=== PATIENT | female | born 1940 | race African-American/Black ===

== ENCOUNTER 2018-03-02 07:39 | Emergency (ER) | payer OTHER ==
--- OUTSIDE RECORDS SUMMARY | 2018-03-02 07:41 | XMS REPORT ---
:1940 Author Organization eClinicalWorks Care Team Providers Name Role Phone Bridget Barrera Provider Role Unavailable Allergies, Adverse Reactions, Alerts Substance Reaction Event Type flu vaccine Chest pain Drug Allergy Problems Problem Type Condition Code Onset Dates Condition Status Problem Pain in knee M25.569 Active Problem Murmur R01.1 Active Problem Heart burn R12 Active Problem Hypertension I10 Active Problem Vitamin D deficiency E55.9 Active Problem Hyperlipidemia E78.5 Active Problem Fatigue R53.83 Active Problem Gastro-esophageal reflux K21.9 Active Problem Anemia D64.9 Active Problem Edema R60.9 Active Assessment Encounter for screening mammogram Z12.31 Active for breast cancer Assessment Medicare annual wellness visit, Z00.00 Active initial Assessment Encounter for general adult medical Z00.00 Active examination without abnormal findings Assessment Osteoporosis screening Z13.820 Active Medications Medication Code Code Instructions Start End Status Dosage System Date Date Ferrous [facility] 64398670509 324 (65 Fe) MG Active 1 tablet Sulfate Orally Once a day Spiriva [facility] 49555116571 18 MCG Active 1 capsule HandiHaler Inhalation Once a day Vitamin D3 [facility] 66132533408 1000 UNIT Orally Active 1 tablet Once a day ProAir [facility] 17034931489 108 (90 Base) Active 2 puffs as RespiClick MCG/ACT needed Inhalation every 6 hrs Meclizine HCl ND 56101329419 25 MG Orally tid Active 1 tablet as needed Zestoretic [facility] 75913262817 20-25 MG Orally Active 1 tablet Once a day Results No Known Results Summary Purpose eClinicalWorks Submission
--- OUTSIDE RECORDS SUMMARY | 2018-03-02 07:41 | XMS REPORT ---
:1940 Author Organization eClinicalWorks Care Team Providers Name Role Phone Bridget Barrera Provider Role Unavailable Allergies No Known Allergies Problems Problem Type Condition Code Onset Dates Condition Status Problem Pain in knee M25.569 Active Problem Murmur R01.1 Active Problem Heart burn R12 Active Problem Hypertension I10 Active Problem Vitamin D deficiency E55.9 Active Problem Hyperlipidemia E78.5 Active Problem Fatigue R53.83 Active Problem Gastro-esophageal reflux K21.9 Active Problem Anemia D64.9 Active Problem Edema R60.9 Active Medications No Known Medications Results No Known Results Summary Purpose eClinicalWorks Submission
--- NOTE | 2018-03-02 08:34 | RAD REPORT ---
EXAM DESCRIPTION: CT - Head Brain Wo Cont - 03/02/2018 8:16 am CLINICAL HISTORY: Dizziness COMPARISON: None. TECHNIQUE: Computed axial tomography of the head was obtained. IV contrast was not requested. All CT scans are performed using dose optimization technique as appropriate and may include automated exposure control or mA/KV adjustment according to patient size. FINDINGS: An intracranial bleed is not seen . The ventricles are normal in caliber. No extra-axial fluid collection is noted. Fluid within the sinuses/ mastoids is not seen. IMPRESSION: No acute intracranial abnormality is seen. If patient's symptoms persist MRI of the bra in would be recommended.
[2018-03-02 08:55] LABS: Absolute Lymphocytes (CBC) 1.5 K/uL (0.7-4.9); Absolute Monocytes 0.3 K/uL (0.1-1.3); Absolute Neutrophil 1.8 K/uL (1.8-8.0); Basophils % 0.6 % (0-1.3); Eosinophils % 1.4 % (0-4.4); Hematocrit 37.8 % (36.0-45.0); Lymphocytes % 41.4 % (15.3-44.8); MCH 33.5 pg (27.0-35.0); MCV 97.5 fL (80-100); MPV 9.2 fL (7.6-11.3); Monocytes % 8.3 % (3.3-12.3); Protime INR 1.11; RBC Red Blood Cell Count 3.88 M/uL (3.86-4.86)
--- NOTE | 2018-03-02 09:01 | RAD REPORT ---
EXAM DESCRIPTION: Jason Single View03/02/2018 8:29 am CLINICAL HISTORY: Hypertension COMPARISON: none FINDINGS: The right base is hazy. The remainder of the lungs appear clear. The heart is mildly enlar ged. IMPRESSION: Right base is hazy. PA and lateral chest series is recommended for further evaluation
[2018-03-02 09:15] LABS: ALT/SGPT 19 U/L (12-78); AST/SGOT 13 U/L (15-37); Albumin 3.6 g/dL (3.4-5.0); Alkaline Phosphatase 42 U/L (45-117); BUN Blood Urea Nitrogen 12 mg/dL (7-18); Bicarbonate 31 mmol/L (21-32); Bilirubin Direct 0.1 mg/dL (0-0.2); Bilirubin Total 0.5 mg/dL (0.2-1.0); Glucose Level 112 mg/dL (74-106); Magnesium 2.1 mg/dL (1.8-2.4); NT PRO-BNP 266 pg/mL (<450); Potassium 3.9 mmol/L (3.5-5.1); Protein, Total 7.9 g/dL (6.4-8.2); Sodium Level 142 mmol/L (136-145); Troponin (Emerg Dept Use Only) < 0.02 ng/mL (0.0-0.045)
--- NOTE | 2018-03-02 09:54 | RAD REPORT ---
EXAM DESCRIPTION: Jason Pa And Lat (2 Views)03/02/2018 9:44 am CLINICAL HISTORY: Hypertension/abnormal chest x-ray COMPARISON: 03/02/2018 FINDINGS: The lungs appear clear of acute infiltrate. The heart is borderline enlarged. Aorta is to rtuous/ectatic IMPRESSION: No acute abnormalities displayed
--- NOTE | 2018-03-02 10:00 | ER ---
Nurse's Notes [facility] Name: Minnie Astudillo Age: 78 yrs Sex: Female : 1940 Arrival Date: 03/02/2018 Time: 07:41 Bed 25 Private MD: Meseret Barrera Diagnosis: Essential (primary) hypertension Presentation: 03/02 07:58 Presenting complaint: Patient states: C/O dizziness due to high BP, systolic BP at home ph in 180s, also reports having palpitations when she woke up this morning, states that she did not take her BP medication for 2 days. Transition of care: patient was not received from another setting of care. Onset of symptoms was March 02, 2018. Risk Assessment: Do you want to hurt yourself or someone else? Patient reports no desire to harm self or others. Initial Sepsis Screen: Does the patient meet any 2 criteria? No. Patient's initial sepsis screen is negative. Does the patient have a suspected source of infection? No. Patient's initial sepsis screen is negative. Care prior to arrival: None. 07:58 Method Of Arrival: Ambulatory ph 07:58 Acuity: ROD 3 ph Historical: - Allergies: 08:02 No Known Allergies; ph - Home Meds: 08:02 lisinopril-hydrochlorothiazide 20-25 mg oral tab 1 tab once daily [Active]; ph - PMHx: 08:02 Hypertension; ph - PSHx: 08:02 colon resection; ph - Immunization history:: Adult Immunizations unknown. - Social history:: Smoking status: Patient/guardian denies using tobacco. - Ebola Screening: : No symptoms or risks identified at this time. Screenin:04 Abuse screen: Denies threats or abuse. Denies injuries from another. Nutritional ph screening: No deficits noted. Tuberculosis screening: No symptoms or risk factors identified. Fall Risk None identified. Assessment: 08:04 General: Appears in no apparent distress. comfortable, obese, well groomed, Behavior is ph calm, cooperative, appropriate for age, Denies fever, feeling ill. Pain: Denies pain. Neuro: Level of Consciousness is awake, alert, obeys commands, Oriented to person, place, time, situation. Neuro: Reports dizziness, Denies weakness blurred vision headache. Cardiovascular: Reports lightheadedness, palpitations, Denies chest pain, nausea, shortness of breath, syncope, Capillary refill < 3 seconds in bilateral fingers Patient's skin is warm and dry. Respiratory: Airway is patent Respiratory effort is even, unlabored. Derm: Skin is intact, is healthy with good turgor, Skin is pink, warm \T\ dry. Musculoskeletal: Circulation, motion, and sensation intact. Range of motion: intact in all extremities. 09:15 Reassessment: Patient appears in no apparent distress at this time. Patient and/or ph family updated on plan of care and expected duration. Pain level reassessed. Patient is alert, oriented x 3, equal unlabored respirations, skin warm/dry/pink. Patient denies pain at this time. 10:44 Reassessment: Patient appears in no apparent distress at this time. Patient and/or ph family updated on plan of care and expected duration. Pain level reassessed. Patient is alert, oriented x 3, equal unlabored respirations, skin warm/dry/pink. Pt instructed to take BP medication daily as ordered and to follow up w/ PCP, d/c home w/ SO. Vital Signs: 08:00 BP 189 / 99; Pulse 87; Resp 18; Temp 97.8; Pulse Ox 97% on R/A; Weight 99.79 kg; Height ph 4 ft. 11 in. (149.86 cm); Pain 0/10; 09:22 BP 179 / 79; Pulse 84; Resp 18; Pulse Ox 98% on R/A; ph 10:12 BP 171 / 65; Pulse 51; Resp 16; Pulse Ox 97% on R/A; Pain 0/10; ph 08:00 Body Mass Index 44.43 (99.79 kg, 149.86 cm) ph ED Course: 07:41 Patient arrived in ED. as 07:42 Meseret Barrera is Private Physician. as 07:49 Shemar Emanuel NP is PHCP. pm1 07:49 Brain Curran MD is Attending Physician. pm1 07:57 Merlyn Layne, NERIS is Primary Nurse. ph 08:00 Triage completed. ph 08:03 Arm band placed on Patient placed in an exam room. ph 08:04 Patient has correct armband on for positive identification. Bed in low position. Call light in reach. Side rails up X 1. Pulse ox on. NIBP on. 08:14 CT completed. Patient tolerated procedure well. Patient moved to CT via wheelchair. jg6 Patient moved to radiology. 08:15 CT Head Brain wo Cont In Process Unspecified. EDMS 08:15 EKG done, by agricultural research technologist. reviewed by Shemar Emanuel NP. at1 08:30 XRAY Chest (1 view) In Process Unspecified. EDMS 08:32 X-ray completed. Patient tolerated procedure well. tm4 08:37 Inserted saline lock: 20 gauge in right antecubital area, using aseptic technique. Blood collected. 09:46 Chest Pa And Lat (2 Views) XRAY In Process Unspecified. EDMS 09:59 Meseret Barrera is Referral Physician. pm1 10:12 No provider procedures requiring assistance completed. ph 10:45 IV discontinued, intact, bleeding controlled, No redness/swelling at site. Pressure ph dressing applied. Administered Medications: No medications were administered Outcome: 09:59 Discharge ordered by MD. pm1 10:53 Patient left the ED. aj1 10:53 Discharged to home via wheelchair, with significant other. ph 10:53 Condition: good 10:53 Discharge instructions given to patient, Instructed on discharge instructions, follow up and referral plans. Demonstrated understanding of instructions, follow-up care. Signatures: Dispatcher [employer] EDPR Trinidad Mohr RN RN aj1 Jazmine Moya tm4 Charline Shell Shelby, RN RN ss Gonzales, Amanda, operator engineer EKG Tat1 Merlyn Layne RN RN ph Marinas, Patrick, NP BAGGER AND STOCK HANDLER HELPER pm1 Lucia Lopez jg6
--- NOTE | 2018-03-02 10:00 | EDPHYS ---
Physician Documentation [facility] Name: Minnie Astudillo Age: 78 yrs Sex: Female : 1940 Arrival Date: 03/02/2018 Time: 07:41 Bed 25 Private MD: Meseret Barrera ED Physician Brain Curran HPI: 03/02 09:45 This 78 yrs old Black Female presents to ER via Ambulatory with complaints of High pm1 Blood Pressure. 09:45 The patient has elevated blood pressure and discovered this at home, with a home pm1 device. Onset: The symptoms/episode began/occurred Patient uncertain when her blood pressure started getting higher. She has not checked it in at least two weeks. Patient checked blood pressure yesterday due to dizziness that has been ongoing for two weeks. Had not taken blood pressure medications for the the past 2 days and has a history of missing them on a regular basis. Does not take medications at a scheduled time, just as she remembers them. Associated signs and symptoms: Pertinent negatives: chest pain, headache, nausea, visual changes, vomiting, weakness, shortness of breath. The patient has experienced similar episodes in the past, a few times. The patient has not recently seen a physician, the patient's primary care provider is Dr. Rae Barrera. Historical: - Allergies: 08:02 No Known Allergies; ph - Home Meds: 08:02 lisinopril-hydrochlorothiazide 20-25 mg oral tab 1 tab once daily [Active]; ph - PMHx: 08:02 Hypertension; ph - PSHx: 08:02 colon resection; ph - Immunization history:: Adult Immunizations unknown. - Social history:: Smoking status: Patient/guardian denies using tobacco. - Ebola Screening: : No symptoms or risks identified at this time. ROS: 09:45 Constitutional: Negative for fever, chills, and weight loss, Eyes: Negative for injury, pm1 pain, redness, and discharge, ENT: Negative for injury, pain, and discharge, Neck: Negative for injury, pain, and swelling, Cardiovascular: Negative for chest pain, palpitations, and edema, Respiratory: Negative for shortness of breath, cough, wheezing, and pleuritic chest pain, Abdomen/GI: Negative for abdominal pain, nausea, vomiting, diarrhea, and constipation, Back: Negative for injury and pain, : Negative for injury, bleeding, discharge, and swelling, MS/Extremity: Negative for injury and deformity, Skin: Negative for injury, rash, and discoloration. 09:45 Neuro: Positive for dizziness, Negative for gait disturbance, headache, numbness, tingling, weakness. Exam: 09:45 Constitutional: This is a well developed, well nourished patient who is awake, alert, pm1 and in no acute distress. Head/Face: Normocephalic, atraumatic. Eyes: Pupils equal round and reactive to light, extra-ocular motions intact. Lids and lashes normal. Conjunctiva and sclera are non-icteric and not injected. Cornea within normal limits. Periorbital areas with no swelling, redness, or edema. ENT: Nares patent. No nasal discharge, no septal abnormalities noted. Tympanic membranes are normal and external auditory canals are clear. Oropharynx with no redness, swelling, or masses, exudates, or evidence of obstruction, uvula midline. Mucous membranes moist. Neck: Trachea midline, no thyromegaly or masses palpated, and no cervical lymphadenopathy. Supple, full range of motion without nuchal rigidity, or vertebral point tenderness. No Meningismus. Chest/axilla: Normal chest wall appearance and motion. Nontender with no deformity. No lesions are appreciated. Cardiovascular: Regular rate and rhythm with a normal S1 and S2. No gallops, murmurs, or rubs. No pulse deficits. Respiratory: Lungs have equal breath sounds bilaterally, clear to auscultation and percussion. No rales, rhonchi or wheezes noted. No increased work of breathing, no retractions or nasal flaring. Abdomen/GI: Soft, non-tender, with normal bowel sounds. No distension or tympany. No guarding or rebound. No evidence of tenderness throughout. Back: No spinal tenderness. No costovertebral tenderness. Full range of motion. Skin: Warm, dry with normal turgor. Normal color with no rashes, no lesions, and no evidence of cellulitis. MS/ Extremity: Pulses equal, no cyanosis. Neurovascular intact. Full, normal range of motion. 09:45 Neuro: Orientation: is normal, Mentation: is normal, Cranial nerves: CN II- XII are normal as tested, Cerebellar function: normal finger to nose testing, heel to mendosa testing is normal, Motor: is normal, moves all fours, Sensation: is normal, no obvious gross deficits, Gait: is steady. Vital Signs: 08:00 BP 189 / 99; Pulse 87; Resp 18; Temp 97.8; Pulse Ox 97% on R/A; Weight 99.79 kg; Height ph 4 ft. 11 in. (149.86 cm); Pain 0/10; 09:22 BP 179 / 79; Pulse 84; Resp 18; Pulse Ox 98% on R/A; ph 10:12 BP 171 / 65; Pulse 51; Resp 16; Pulse Ox 97% on R/A; Pain 0/10; ph 08:00 Body Mass Index 44.43 (99.79 kg, 149.86 cm) ph MDM: 07:49 Patient medically screened. pm1 09:47 Data reviewed: vital signs. Data interpreted: Pulse oximetry: on room air is 98 %. pm1 Interpretation: normal. 09:55 Counseling: I had a detailed discussion with the patient and/or guardian regarding: the pm1 historical points, exam findings, and any diagnostic results supporting the discharge/admit diagnosis, lab results, radiology results, the need for outpatient follow up, to return to the emergency department if symptoms worsen or persist or if there are any questions or concerns that arise at home. 03/02 07:57 Order name: Basic Metabolic Panel; Complete Time: 09:23 pm03/02 07:57 Order name: CBC with Diff; Complete Time: 09:09 pm03/02 07:57 Order name: LFT's; Complete Time: 09:23 pm03/02 07:57 Order name: Magnesium; Complete Time: 09: pm03/02 07:57 Order name: NT PRO-BNP; Complete Time: 09:23 pm03/02 07:57 Order name: PT-INR; Complete Time: 09:09 pm03/02 07:57 Order name: Troponin (emerg Dept Use Only); Complete Time: 09: pm03/02 07:57 Order name: XRAY Chest (1 view); Complete Time: 09:09 pm03/02 07:57 Order name: EKG; Complete Time: 07:58 pm03/02 07:57 Order name: Cardiac monitoring; Complete Time: 08:53 pm03/02 07:57 Order name: EKG - Nurse/Tech; Complete Time: 08:07 pm1 03/02 07:57 Order name: IV Saline Lock; Complete Time: 09:25 pm1 03/02 07:57 Order name: CT Head Brain wo Cont; Complete Time: 09:09 pm03/02 09:10 Order name: Chest Pa And Lat (2 Views) XRAY; Complete Time: 09:55 pm1 03/02 07:57 Order name: Labs collected and sent; Complete Time: 09: pm03/02 07:57 Order name: O2 Per Protocol; Complete Time: 08: pm03/02 07:57 Order name: O2 Sat Monitoring; Complete Time: 08: pm1 Administered Medications: No medications were administered Disposition: 12:34 Co-signature as Attending Physician, Brain Curran MD. rn Disposition: 03/02/18 09:59 Discharged to Home. Impression: Essential (primary) hypertension. - Condition is Stable. - Discharge Instructions: Hypertension, How to Take Your Blood Pressure, [id number]-rn-[id number], DASH Eating Plan, Managing Your Hypertension. - Medication Reconciliation Form, Thank You Letter form. - Follow up: Emergency Department; When: As needed; Reason: Worsening of condition. Follow up: Meseret Barrera; When: 2 - 3 days; Reason: Recheck today's complaints, Continuance of care, Re-evaluation by your physician. - Problem is new. - Symptoms have improved. Signatures: Dispatcher [employer] EDTrinidad Betancur RN RN aj1 Brain Curran MD MD rn Hall, Patricia, RN RN ph Marinas, Patrick, CAFETERIA SERVER CAFETERIA SERVER pm1 Corrections: (The following items were deleted from the chart) 10:53 09:59 03/02/2018 09:59 Discharged to Home. Impression: Essential (primary) aj1 hypertension. Condition is Stable. Forms are Medication Reconciliation Form, Thank You Letter, Antibiotic Education, Prescription Opioid Use. Follow up: Emergency Department; When: As needed; Reason: Worsening of condition. Follow up: Meseret Barrera; When: 2 - 3 days; Reason: Recheck today's complaints, Continuance of care, Re-evaluation by your physician. Problem is new. Symptoms have improved. pm1
--- NOTE | 2018-03-02 14:32 | EKG ---
Test Date: 2018-03-02 Test Time: 08:08:23 Arnp: ALEXANDRA MEASUREMENT RESULTS: Intervals: Rate: 75 [place]: 188 QRSD: 72 QT: 406 QTc: 453 [place]: P: 54 [place]: 188 QRS: 32 T: 19 INTERPRETIVE STATEMENTS: Normal sinus rhythm Normal ECG Compared to ECG 10/24/2000 08:08:00 Sinus bradycardia no longer present Electronically Signed On 03-02-18 14:31:18 CDT by Desmond Andrade
== END 2018-03-02 10:53 | disposition home or self-care (01) ==
LOC: ER 07:39
DX: I10 Essential (primary) hypertension (principal)
CPT/HCPCS: 36415; 70450; 71045; 71046; 80048; 80076; 83735; 83880; 84484; 85025; 85610; 93005; 99284

== ENCOUNTER 2020-06-23 13:51 | Inpatient (IN) | payer OTHER ==
--- OUTSIDE RECORDS SUMMARY | 2020-06-23 13:54 | XMS REPORT | Continuity of Care Document ---
:1940 Author Organization [facility] t Address [address] [place] [address] Care Team Providers Name Role Phone Unavailable Unavailable Unavailable Problems This patient has no known problems. Allergies, Adverse Reactions, Alerts Allergy Allergy Status Severity Reaction(s) Onset Inactive Treating Comm ents Source Name Type Date Date Clinician flu Adverse Active Chest pain [facility] Medications Ordered Filled Start Stop Current Ordering Indication Dosage Frequency Signature Comments Components Source Medication Medication Date Date Medication? Clinician (SIG) Name Name Lasautumn Ramosix 2018-06 Yes Meseret [address] [facility]12 [facility] Ferrous Ferrous Yes Meseret [address] [facility] Sulfate Sulfate [facility] Hydrochloro Hydrochloro Yes Meseret [address] [facility] thiazide thiazide [facility] Metoprolol Metoprolol Yes Meseret [address] Succinate Succinate [facility] Procedures This patient has no known procedures. Encounters Start End Encounter Admission Attending Care Care Encounter Source Date/Time Date/Time Type Type Clinicians Facility Department ID 2020-06-09 2020-06-09 Outpatient [facility] [id number] [facility] 2020-06-09 2020-06-09 Outpatient [facility] [id number] [facility] 2019-04-19 2019-04-19 [facility] [id number] [facility] 11:40[facility]00 11:40:00 [facility] 2019-04-17 2019-04-17 [facility] [id number] 11:00[facility] 11:00:00 [facility] 2018-09-04 2018-09-04 [facility] [id number] 11:[facility] 11:00:00 [facility] 2018-03-09 2018-03-09 [facility] [id number] 11:30:00 11:30:00 [facility] 2018-03-06 2018-03-06 [facility] [id number] [address] 13:36:00 13:36:00 [facility] Out[facility] Clin[facility] 2018-02-17 2018-02-17 [facility] [id number] 10:04:00 10:04:00 [facility] Outpat[facility] ent Clinics 2018-01-31 2018-01-31 [facility] [id number] [address] 13:00:00 13:00:00 [facility] Outpati ent Clinics Results This patient has no known results.
--- OUTSIDE RECORDS SUMMARY | 2020-06-23 13:55 | XMS REPORT ---
:1940 Author Organization [facility] Address [address] [place] [address] Care Team Providers Name Role Phone Holly Unavailable [phone] PROBLEMS Type Condition ICD9-CM DRA24-AH Onset Condition SNOMED Code Notes Code Code Dates Status Problem Murmur R01.1 Active 198584694 Problem Fatigue R53.83 Active 92272719 Problem Gastro-esophageal K21.9 Active 721656410 reflux Problem Vitamin D E55.9 Active 00689401 deficiency Problem Hypertension I10 Active 07906183 Problem Hyperlipidemia E78.5 Active 96146912 Problem Dizziness R42 Active 986740119 Problem Anemia D64.9 Active 543817394 Problem RITTER (dyspnea on R06.00 Active 94285172 exertion) Problem Edema R60.9 Active 522163352 Problem Pain in knee M25.569 Active 43303972 Problem Heart burn R12 Active 96813719 Problem Unsteady R26.81 Active 22784311 Problem Vertigo R42 Active 461294211 ALLERGIES Allergen (clinical Drug/Non Drug Allergy Reaction Allergy Type Onse t Date Status drug ingredient) documented on EMR flu vaccine Chest pain Drug Allergy Active ENCOUNTERS from 1940 to 2020-06-09 Encounter Location Date Provider Diagnosis [facility] [address] Jun, 2020 [place] [address] IMMUNIZATIONS No Information SOCIAL HISTORY Tobacco Use: Social History Observation Description Date Details (start date - stop date) Never Smoker Sex Assigned At : Social History Observation Description Sex Assigned At Unknown Alcohol Screen Question Answer Notes Did you have a drink containing alcohol in the past Yes year? Points 1 Interpretation Negative How many drinks did you have on a typical day when 1 or 2 (0 points) you were drinking in the past year? How often did you have a drink containing alcohol in Monthly or less (1 point) the past year? Tobacco Use/Smoking Question Answer Notes Are you a never smoker REASON FOR REFERRAL No Information VITAL SIGNS No information MEDICATIONS Medication SIG (Take, Route, Notes Start Date End Date Status Frequency, Duration) Ferrous Sulfate 324 (65 Fe) 1 tablet Orally Active MG Once a day for 30 day(s) Furosemide 40 MG 1 tablet Orally Jun, A ctive Twice a day for 7 days Hydrochlorothiazide 25 MG 1 tablet in the Active morning Orally Once a day for 30 day(s) Klor-Con M20 20 MEQ 2 tablet with food Jun,Jun , Active Orally Once a day 2020 for 7 days Metoprolol Succinate 50 MG 1 tab Orally bid Active Lasix 40 MG 1 tablet Orally Apr, Not-Ta holly Once a day for 30 days PROCEDURES No Information RESULTS No Results REASON FOR VISIT No Information MEDICAL (GENERAL) HISTORY Type Description Date Medical History Gastro-esophageal reflux Medical History Vitamin D deficiency Medical History Murmur Medical History Edema Medical History Hypertension Medical History Anemia Medical History Fatigue Medical History Hyperlipidemia Medical History Heart burn Medical History Pain in knee Surgical History Cataract-OS 04/2010 Surgical History Cataract- OD 05/2015 Surgical History Colectomy- chemo 2002 Goals Section No Information Health Concerns No Information MEDICAL EQUIPMENT No Information MENTAL STATUS No Information FUNCTIONAL STATUS No Information ASSESSMENTS No Information PLAN OF TREATMENT Medication Medication Name Sig Start Date Stop Date Furosemide 40 MG 1 tablet Orally Twice a day for 7 days Jun, Klor-Con M20 20 MEQ 2 tablet with food Orally Once a day Jun, Jun, for 7 days Insurance Providers Payer Name Payer Payer Insured Patient Coverage Coverage End Address Phone Name Relationship to Start Date Keith e Insured [employer] [phone] Astudillo,Lot self MEDICARE [id number] [place] [phone]
--- OUTSIDE RECORDS SUMMARY | 2020-06-23 13:55 | XMS REPORT ---
:1940 Author Organization [facility] Address [address] [place] [address] Care Team Providers Name Role Phone Holly Unavailable [phone] PROBLEMS Type Condition ICD9-CM [id number] Onset Condition SNOMED Code Notes Code Code Dates Status Problem Murmur R01.1 Active 643119186 Problem Fatigue R53.83 Active 64423352 Problem Gastro-esophageal K21.9 Active 874029551 reflux Problem Vitamin D E55.9 Active 03430611 deficiency Problem Hypertension I10 Active 33061324 Problem Hyperlipidemia E78.5 Active 77773524 Problem Dizziness R42 Active 064304211 Problem Anemia D64.9 Active 671686516 Problem RITTER (dyspnea on R06.00 Active 27892215 exertion) Problem Edema R60.9 Active 854103570 Problem Pain in knee M25.569 Active 74511390 Problem Heart burn R12 Active 63447882 Problem Unsteady R26.81 Active 92115538 Problem Vertigo R42 Active 461636199 ALLERGIES Allergen (clinical Drug/Non Drug Allergy Reaction Allergy Type Onse t Date Status drug ingredient) documented on EMR flu vaccine Chest pain Drug Allergy Active ENCOUNTERS from 1940 to 2020-06-09 Encounter Location Date Provider Diagnosis [facility] [address] Jun, 2020 Meseret Holly Murmur R01.1 ; [facility] [place] [id number] exertion) R06.0 0 ; Unsteady R26.81 and Anemia D64.9 IMMUNIZATIONS No Information SOCIAL HISTORY Tobacco Use: [...] REASON FOR REFERRAL No Information VITAL SIGNS Height 59.5 in Jun, Weight 213.2 lbs Jun, Temperature 97.2 degrees Fahrenheit Jun, BMI 42.34 kg/m2 Jun, Oximetry 92 % Jun, Respiratory Rate 20 /min Jun, Blood pressure systolic 144 mm Hg Jun, Blood pressure diastolic 80 mm Hg Jun, MEDICATIONS Medication SIG (Take, Route, Notes Start [...] for 30 days PROCEDURES No Information RESULTS Component Value Reference Range CBC with Automated Diff Reviewed date:06/09/2020 12:13:42 Interpretation:anemia Performing Lab: White Blood Count 5.0 4.3-10.9 RBC Red Blood Cell Count 3.55 3.86-4.86 Hemoglobin 11.2 12.0-15.0 Hematocrit 33.8 36.0-45.0 MCV 95.2 80-100 MCH 31.6 27.0-35.0 MCHC 33.2 32.0-36.0 Platelets 282 152-406 Red Cell Distribution Width 13.2 12.1-15.2 MPV 9.1 7.6-11.3 Neutrophils % 63.1 41.7-73.7 Lymphocytes % 23.8 15.3-44.8 Monocytes % 11.4 3.3-12.3 Eosinophils % 1.3 0-4.4 Basophils % 0.4 0-1.3 Absolute Neutrophil 3.2 1.8-8.0 Absolute Lymphocytes (CBC) 1.2 0.7-4.9 Absolute Monocytes 0.6 0.1-1.3 Absolute Eosinophils 0.1 0-0.5 Absolute Basophils 0.0 0-0.5 Chest Pa And Lat (2 Views) Reviewed date:06/09/2020 12:11:34 Interpretation: Performing Lab: REASON FOR VISIT Feels unsteady, winded when walking (covid test negative; symptom free) (IN LOBBY) MEDICAL (GENERAL) HISTORY Type Description Date Medical History Gastro-esophageal reflux Medical History Vitamin D deficiency Medical History Murmur Medical History Edema Medical History Hypertension Medical History Anemia Medical History Fatigue Medical History Hyperlipidemia Medical History Heart burn Medical History Pain in knee Surgical History Cataract-OS 04/2010 Surgical History Cataract- OD 05/2015 Surgical History Colectomy- chemo 2001 Goals Section No Information Health Concerns No Information MEDICAL EQUIPMENT No Information MENTAL STATUS No Information FUNCTIONAL STATUS No Information ASSESSMENTS Encounter Date Diagnosis Assessment Notes Treatment Notes Treatm ent Clinical Notes Jun, Murmur (ICD-10 - aware R01.1) Jun, RITTER (dyspnea on will get a chest exertion) (ICD-10 xray - R06.00) Jun, Unsteady (ICD-10 - R26.81) Jun, Anemia (ICD-10 - D64.9) PLAN OF TREATMENT Medication Medication Name Sig Start Date Stop Date Furosemide 40 MG 1 tablet Orally Twice a day for 7 days Jun, Klor-Con M20 20 MEQ 2 tablet with food Orally Once a day Jun, Jun, for 7 days Treatment Notes Assessment Notes Clinical Notes Murmur aware RITTER (dyspnea on exertion) will get a chest xray Treatment Notes Test Name Order Date Comp. Metabolic Panel (14) (CMP) 2020-06-09 Next Appt Details pending tests Reason: Insurance Providers Payer Name Payer Payer Insured Patient Coverage Coverage End Address Phone Name Relationship to Start Date Keith e Insured [employer] [phone] [place] MEDICARE [id number] [place] [address]
[2020-06-23 14:20] LABS: Absolute Lymphocytes (CBC) 1.7 K/uL (0.7-4.9); Basophils % 0.8 % (0-1.3); Hematocrit 36.1 % (36.0-45.0); Lymphocytes % 19.9 % (15.3-44.8); MPV 9.4 fL (7.6-11.3); RBC Red Blood Cell Count 3.81 M/uL (3.86-4.86)
[2020-06-23 14:21] LABS: Protime INR 1.23
[2020-06-23 14:38] LABS: ALT/SGPT 17 U/L (12-78); AST/SGOT 20 U/L (15-37); Albumin 3.4 g/dL (3.4-5.0); Alkaline Phosphatase 47 U/L (45-117); BUN Blood Urea Nitrogen 29 mg/dL (7-18); Bicarbonate 34 mmol/L (21-32); Bilirubin Direct 0.2 mg/dL (0-0.2); Bilirubin Total 0.5 mg/dL (0.2-1.0); Glucose Level 154 mg/dL (74-106); Magnesium 2.4 mg/dL (1.8-2.4); NT PRO-BNP 337 pg/mL (<450); Potassium 3.7 mmol/L (3.5-5.1); Protein, Total 8.6 g/dL (6.4-8.2); Sodium Level 140 mmol/L (136-145); Troponin (Emerg Dept Use Only) < 0.02 ng/mL (0.0-0.045)
[2020-06-23 14:54] LABS: Arterial Blood Carboxyhemoglob 1.5 % (0-1.5); Blood Gas Oxyhemoglobin 91.3 % (94-97); Blood O2 Saturation 93.5 % (92-98.5)
--- NOTE | 2020-06-23 15:07 | RAD REPORT ---
EXAM DESCRIPTION: Jason Single View06/23/2020 2:51 pm CLINICAL HISTORY: Shortness of breath COMPARISON: June 09 FINDINGS: Opacification of the right hemithorax. Trachea is shifted to the left. Left lung appears clear of acute infiltrate. Heart is mildly enlarged IMPRESSION: Opacification of the right hemithorax probably due to a large pleural effusion
[2020-06-23] MEDS ORDERED: CEFTRIAXONE/SWI 1gm 1 GM/10 ML SYR ONE (15:15)
[2020-06-23 15:34] LABS: SARS-COV-2 RT PCR NEGATIVE (NEGATIVE)
--- NOTE | 2020-06-23 15:45 | RAD REPORT ---
EXAM DESCRIPTION: CT - Chest For Pe Angio - 06/23/2020 3:31 pm CLINICAL HISTORY: Cough/shortness of breath COMPARISON: None. TECHNIQUE: Dynamically enhanced axial 3 mm thick images of the chest were obtained during administra tion of <100> mL Isovue 370 IV contrast. Coronal and oblique reconstruction images were generated and reviewed. Exam utilizes a protocol for optimal evaluation of pulmonary arterial tree. Maximum intensity projections 3D imaging was utilized All CT scans are performed using dose optimization technique as appropriate and may include automated exposure control or mA/KV adjustment according to patient size. FINDINGS: A pulmonary embolus is not seen. A thoracic aortic aneurysm is not noted. Opacification of the right hemithorax secondary to a very large pleural effusion. Passive right atele ctasis is present. Small left pleural effusion with left lower lobe atelectasis. Small amount ascites upper abdomen IMPRESSION: Negative for a pulmonary embolism. Large right pleural effusion
--- NOTE | 2020-06-23 16:03 | P.HP ---
Certification for Inpatient Patient admitted to: Inpatient With expected LOS: >2 Midnights Practitioner: I am a practitioner with admitting privileges, knowledge of patient current condition, hospital course, and medical plan of care. Services: Services provided to patient in accordance with Admission requirements found in Title 42 Section 412.3 of the Code of Federal Regulations Patient History Date of Service: 06/23/20 Reason for admission: Shortness of breath History of Present Illness: 80-year-old woman with a history of hypertension was brought to the emergency department by EMS because of respiratory distress. Patient received a dose of IV Ativan on the way to the emergency department. She was stuporous during my assessment patient could not provide any history. CT chest done in the emergency department demonstrated large pleural effusion completely filling the right hemithorax. Arterial blood gas shows hypoxemia and some CO2 retention. Patient started on BiPAP therapy for acute respiratory failure. She has no leukocytosis, afebrile and does not meet criteria for sepsis. Patient admitted for further management. - Past Medical/Surgical History -: Hypertension - Social History Alcohol use: No Place of Residence: Home Review of Systems is unable to be obtained (Due to altered mental status.) Physical Examination - Physical Exam General: Moderate distress, Other (Somnolent) HEENT: PERRLA, Other (BiPAP applied.), Sclerae nonicteric Neck: Supple, JVD distended Respiratory: Diminished (Markedly diminished on the right), Other (No rhonchi) Cardiovascular: Regular rate/rhythm, Edema (2+ bilateral lower extremity edema.) Gastrointestinal: Normal bowel sounds, Soft and benign, No tenderness Musculoskeletal: No erythema Integumentary: No rashes, No erythema Neurological: Other (Somnolent. She moves all extremities spontaneously.) - Studies Laboratory Data (last 24 hrs) 06/23/20 14:00: PT 14.4 H, INR 1.23 06/23/20 14:00: WBC 8.7, Hgb 11.8 L, Hct 36.1, Plt Count 329 06/23/20 14:00: Sodium 140, Potassium 3.7, BUN 29 H, Creatinine 0.99, Glucose 154 H, Magnesium 2.4, Total Bilirubin 0.5, AST 20, ALT 17, Alkaline Phosphatase 47 Assessment and Plan - Problems (Diagnosis) (1) Acute respiratory failure with hypoxia and hypercapnia Current Visit: Yes Status: Acute (2) Pleural effusion, right Current Visit: Yes Status: Acute (3) Hypertension Current Visit: Yes Status: Acute (4) Congestive heart failure Current Visit: Yes Status: Acute - Plan Admit to the ICU. Patient with respiratory failure secondary to large pleural effusion. Start IV Lasix Scheduled bronchodilators. Patient will need thoracentesis. Repeat imaging after thoracentesis to exclude lung mass/pneumonia. Empiric IV Levaquin. Consult to pulmonary. Consult general surgery Consult to cardiology. Obtain echocardiogram. - Advance Directives Does patient have a Living Will: No Does patient have a Durable POA for Healthcare: No
--- NOTE | 2020-06-23 16:27 | EDPHYS ---
Physician Documentation [facility] Name: Minnie Astudillo Age: 80 yrs Sex: Female : 1940 Arrival Date: 06/23/2020 Time: 13:55 Bed 4 Private MD: ED Physician Facundo Aguilar HPI: 06/23 14:03 This 80 yrs old Black Female presents to ER via Unassigned with complaints of Shortness erich Of Breath. 14:03 The patient has shortness of breath at rest, with light activity. Onset: The erich symptoms/episode began/occurred just prior to arrival, this morning. Duration: The symptoms are continuous, and are steadily getting worse. The patient's shortness of breath is aggravated by light activity, supine position, talking, walking. Associated signs and symptoms: Pertinent positives: non-productive cough. Severity of symptoms: At their worst the symptoms were mild moderate in the emergency department the symptoms are unchanged. The patient has experienced similar episodes in the past, multiple times. Historical: - Allergies: 13:55 No Known Allergies; aa5 - Home Meds: 13:55 potassium chloride 20 mEq Oral TbER once daily [Active]; furosemide 40 mg Oral tab 2 aa5 times per day [Active]; ferrous sulfate 325 mg (65 mg iron) oral tab twice a day [Active]; metoprolol tartrate 50 mg oral tab 2 times per day [Active]; - PMHx: 13:55 Hypertension; CHF; aa5 - PSHx: 13:55 colon resection; aa5 - Immunization history:: Adult Immunizations unknown. - Family history:: not pertinent. - Social history:: Smoking status: unknown. ROS: 14:04 Constitutional: Negative for fever, chills, and weight loss, Eyes: Negative for injury, erich pain, redness, and discharge, ENT: Negative for injury, pain, and discharge, Neck: Negative for injury, pain, and swelling, Cardiovascular: Negative for chest pain, palpitations, and edema, Abdomen/GI: Negative for abdominal pain, nausea, vomiting, diarrhea, and constipation, Back: Negative for injury and pain, : Negative for injury, bleeding, discharge, and swelling, MS/Extremity: Negative for injury and deformity, Skin: Negative for injury, rash, and discoloration, Neuro: Negative for headache, weakness, numbness, tingling, and seizure, Psych: Negative for depression, anxiety, suicide ideation, homicidal ideation, and hallucinations, Allergy/Immunology: Negative for hives, rash, and allergies, Endocrine: Negative for neck swelling, polydipsia, polyuria, polyphagia, and marked weight changes. 14:04 Respiratory: Positive for cough, orthopnea, shortness of breath, at rest. wheezing, expiratory. Exam: 14:04 Constitutional: This is a well developed, well nourished patient who is awake, alert, erich and in no acute distress. Head/Face: Normocephalic, atraumatic. Eyes: Pupils equal round and reactive to light, extra-ocular motions intact. Lids and lashes normal. Conjunctiva and sclera are non-icteric and not injected. Cornea within normal limits. Periorbital areas with no swelling, redness, or edema. ENT: Nares patent. No nasal discharge, no septal abnormalities noted. Tympanic membranes are normal and external auditory canals are clear. Oropharynx with no redness, swelling, or masses, exudates, or evidence of obstruction, uvula midline. Mucous membranes moist. Neck: Trachea midline, no thyromegaly or masses palpated, and no cervical lymphadenopathy. Supple, full range of motion without nuchal rigidity, or vertebral point tenderness. No Meningismus. Chest/axilla: Normal chest wall appearance and motion. Nontender with no deformity. No lesions are appreciated. Cardiovascular: Regular rate and rhythm with a normal S1 and S2. No gallops, murmurs, or rubs. Normal PMI, no JVD. No pulse deficits. Abdomen/GI: Soft, non-tender, with normal bowel sounds. No distension or tympany. No guarding or rebound. No evidence of tenderness throughout. Back: No spinal tenderness. No costovertebral tenderness. Full range of motion. Female : Normal external genitalia. MS/ Extremity: Pulses equal, no cyanosis. Neurovascular intact. Full, normal range of motion. Neuro: Awake and alert, GCS 15, oriented to person, place, time, and situation. Cranial nerves II-XII grossly intact. Motor strength 5/5 in all extremities. Sensory grossly intact. Cerebellar exam normal. Normal gait. Psych: Awake, alert, with orientation to person, place and time. Behavior, mood, and affect are within normal limits. 14:04 Respiratory: moderate respiratory distress is noted, Respirations: labored breathing, that is mild, that is moderate, Breath sounds: bronchial sounds, decreased breath sounds, rhonchi, wheezing: expiratory Respiratory rate: 28 14:22 ECG was reviewed by the Attending Physician. [facility] Vital Signs: 13:55 BP 159 / 93; Pulse 115; Resp 28 S; Temp 98.8(O); Pulse Ox 100% on Non-rebreather mask; aa5 14:00 BP 130 / 82; Pulse 114; Resp 30 A; Pulse Ox 100% on BiPAP; aa5 14:45 BP 121 / 75; Pulse 106; Resp 26 A; Temp 99.3(C); Pulse Ox 95% on BiPAP; aa5 15:00 BP 109 / 59; Pulse 102; Resp 28; Pulse Ox 98% on BiPAP; aa5 16:00 BP 113 / 64; Pulse 98; Resp 32; Temp 98.6(C); Pulse Ox 100% on BiPAP; aa5 17:00 BP 93 / 58; Pulse 90; Resp 28; Temp 98.4(C); Pulse Ox 100% on BiPAP; aa5 17:10 BP 93 / 59; Pulse 88; Resp 26 A; Temp 98.3(C); Pulse Ox 100% on BiPAP; aa5 17:30 BP 89 / 55; Pulse 87; Resp 24 A; Pulse Ox 100% on BiPAP; aa5 17:45 BP 125 / 83; Pulse 81; Resp 24 A; Pulse Ox 100% on BiPAP; aa5 18:05 BP 119 / 59; Pulse 82; Resp 22 A; Temp 98.3(C); Pulse Ox 100% on BiPAP; aa5 17:00 MD notified of decreased BP aa5 MDM: 14:06 Differential diagnosis: Anemia asthma. Antibiotic administration: Not indicated. The [facility] patient's Wells Deep Vein Thrombosis Score was calculated as follows: Heart Rate >100 BPM (1.5 Pts) Imm/Surg in last 4 wks (1.5 Pts) Total Score: 3-6 Pts - Mod Risk. The patient's pulmonary embolism risk score was calculated as follows: the patients heart rate is greater than 100 beats per minute (1.5 Pts) patient has experienced immobilization or surgery in the last four weeks (1.5 Pts) Total Score: 3-6 points. This patient was found to be at moderate risk for a pulmonary embolism by using the Well's assessment criteria. Immunization status: Pneumococcal vaccine: Influenza vaccine: Data reviewed: vital signs, nurses notes, lab test result(s), EKG, radiologic studies, CT scan, plain films. Data interpreted: pricing strategist: rate is 114 beats/min, rhythm is regular. Test interpretation: by ED physician or midlevel provider: ECG, plain radiologic studies. Counseling: I had a detailed discussion with the patient and/or guardian regarding: the historical points, exam findings, and any diagnostic results supporting the discharge/admit diagnosis, the presence of at least one elevated blood pressure reading (>120/80) during this emergency department visit, lab results, radiology results, the need for further work-up and treatment in the hospital. 14:23 Patient medically screened. [facility] 16:26 Physician consultation: Bill Olivas. Physician consultation: Cezar Beltran MD and [facility] will see patient in inpatient room, wants dr torres consulted. 16:31 Physician consultation: Brandon Torres MD and will see patient in ED, dr torres in route [facility] now. immediately. 06/23 14:01 Order name: Basic Metabolic Panel [facility] 06/23 14:01 Order name: CBC with Diff [facility] 06/23 14:01 Order name: LFT's [facility] 06/23 14:01 Order name: Magnesium [facility] 06/23 14:01 Order name: NT PRO-BNP [facility] 06/23 14:01 Order name: PT-INR [facility] 06/23 14:01 Order name: Troponin (emerg Dept Use Only) [facility] 06/23 14:01 Order name: Blood Culture Adult (2) [facility] 06/23 14:01 Order name: Lactate; Complete Time: 14:55 [facility] 06/23 14:01 Order name: Urine Culture [facility] 06/23 14:02 Order name: Basic Metabolic Panel; Complete Time: 14:55 ED[facility] 06/23 14:02 Order name: CBC with Automated Diff; Complete Time: 14:55 [facility] 06/23 14:01 Order name: XRAY Chest (1 view); Complete Time: 15:27 [facility] 06/23 14:01 Order name: BIPAP [facility] 06/23 14:02 Order name: Liver (Hepatic) Function; Complete Time: 14:55 [facility] 06/23 14:02 Order name: Magnesium; Complete Time: 14:55 [facility] 06/23 14:02 Order name: NT PRO-BNP; Complete Time: 14:55 [facility] 06/23 14:02 Order name: Protime (+INR); Complete Time: 14:55 [facility] 06/23 14:02 Order name: Troponin (Emerg Dept Use Only); Complete Time: 14:55 [facility] 06/23 14:03 Order name: ABG; Complete Time: 15:27 [facility] 06/23 14:59 Order name: Urine Dipstick--Ancillary (enter results) 06/23 15:03 Order name: CT Chest For PE Angio; Complete Time: 15:54 [facility] 06/23 15:09 Order name: Glucose, Ancillary Testing; Complete Time: 15:27 [facility] 06/23 15:34 Order name: COVID-19/FLU A+B; Complete Time: 15:54 [facility] 06/23 16:53 Order name: CXR XRAY 06/23 18:28 Order name: Lactate Sepsis 2 HR Follow-up [facility] 06/23 14:01 Order name: EKG; Complete Time: 14:03 [facility] 06/23 14:01 Order name: Cardiac monitoring; Complete Time: 14:27 [facility] 06/23 14:01 Order name: EKG - Nurse/Tech; Complete Time: 14:28 [facility] 06/23 14:01 Order name: IV Saline Lock; Complete Time: 14:28 [facility] 06/23 14:01 Order name: Labs collected and sent; Complete Time: 14:28 [facility] 06/23 14:01 Order name: O2 Per Protocol; Complete Time: 14:28 [facility] 06/23 14:01 Order name: O2 Sat Monitoring; Complete Time: 14:28 [facility] 06/23 14:01 Order name: Faria; Complete Time: 14:28 [facility] 06/23 14:01 Order name: Urine Dipstick-Ancillary (obtain specimen); Complete Time: 14:27 [facility] EC:22 Rate is 114 beats/min. Rhythm is regular. QRS [place] is Normal. AR interval is normal. [facility] QRS interval is normal. QT interval is normal. No Q waves. T waves are Normal. No ST changes noted. Clinical impression: NSR w/ Non-specific ST/T Changes and Sinus tachycardia. Interpreted by me. Reviewed by me. Administered Medications: 14:45 Drug: Rocephin 1 grams Route: IV; Rate: per protocol; Site: left antecubital; aa5 15:00 Follow up: IV Status: Completed infusion aa5 17:00 Drug: Zosyn 3.375 grams Route: IVPB; Infused Over: 60 mins; Site: right forearm; aa5 18:00 Follow up: Response: No adverse reaction; IV Status: Completed infusion aa5 17:10 Drug: NS 0.9% 500 ml Route: IV; Rate: bolus; Site: left forearm; aa5 18:00 Follow up: IV Status: Completed infusion; IV Intake: 500ml aa5 Point of Care Testing: Blood Glucose: 14:29 Blood Glucose: 127 mg/dL; aa5 Ranges: Critical Glucose Levels:Adult <50 mg/dl or >400 mg/dl <40 mg/dl or >180 mg/dl Disposition: 06/23/20 16:26 Hospitalization ordered by Bill Olivas for Inpatient Admission. Preliminary diagnosis are Dyspnea, Pleural effusion in other conditions classified elsewhere - large right pleural effusion, Unspecified combined systolic (congestive) and diastolic (congestive) heart failure, Obesity, unspecified, Respiratory failure, unspecified with hypercapnia, Respiratory failure, unspecified with hypoxia. - Bed requested for Intensive Care Unit. - Status is Inpatient Admission. iw - Condition is Fair. - Problem is new. - Symptoms have improved. Signatures: Dispatcher [employer] EDAL Natividad Caruso Corey, MD MD cha Williams, Irene, RN Lizeth Sweeney RN RN aa5 Todd Quintanilla, RIG BUILDER HELPER-C RIG BUILDER HELPER-Cla1 Corrections: (The following items were deleted from the chart) 14:45 14:03 CORONAVIRUS+MR.LAB.BRZ ordered. EDAL EDMS 14:46 14:03 Influenza Screen (A \T\ B)+BA.LAB.BRZ ordered. EDAL EDMS 17:18 16:26 Hospitalization Ordered by Bill Olivas for Inpatient Admission. Preliminary bd diagnosis is Dyspnea; Pleural effusion in other conditions classified elsewhere - large right pleural effusion; Unspecified combined systolic (congestive) and diastolic (congestive) heart failure; Obesity, unspecified; Respiratory failure, unspecified with hypercapnia; Respiratory failure, unspecified with hypoxia. Bed requested for Intensive Care Unit. Status is Inpatient Admission. Condition is Fair. Problem is new. Symptoms have improved. erich 18:28 17:18 06/23/2020 16:26 Hospitalization Ordered by Bill Olivas for Inpatient iw Admission. Preliminary diagnosis is Dyspnea; Pleural effusion in other conditions classified elsewhere - large right pleural effusion; Unspecified combined systolic (congestive) and diastolic (congestive) heart failure; Obesity, unspecified; Respiratory failure, unspecified with hypercapnia; Respiratory failure, unspecified with hypoxia. Bed requested for Intensive Care Unit. Status is Inpatient Admission. Condition is Fair. Problem is new. Symptoms have improved. bd
--- NOTE | 2020-06-23 16:27 | ER ---
Nurse's Notes [facility] Name: Minnie Astudillo Age: 80 yrs Sex: Female : 1940 Arrival Date: 06/23/2020 Time: 13:55 Bed 4 Private MD: Diagnosis: Dyspnea;Pleural effusion in other conditions classified elsewhere-large right pleural effusion;Unspecified combined systolic (congestive) and diastolic (congestive) heart failure;Obesity, unspecified;Respiratory failure, unspecified with hypercapnia;Respiratory failure, unspecified with hypoxia Presentation: 06/23 13:55 Chief complaint: Chief complaint: Chief complaint: EMS states: Sudden onset of dyspnea aa5 at Dr. Andrade's office (wink cutter operator), initial BP was 180/120, RR40, initial O2 sat was 70% RA and increased to 98% upon O2 administration via non-rebreather. EMS reports pt was given Ativan 2mg IVP and Bi-PAP was attempted but pt did not tolerate Bi-PAP. EMS also reports administering Lasix 80mg IVP and Nitro paste. 18G to L AC by EMS. Nitro paste removed upon arrival to ER. 13:55 Coronavirus screen: cough unrelated to allergies, shortness of breath, Client presents aa5 with at least one sign or symptom that may indicate coronavirus-19. Standard/surgical mask placed on the client. Provider contacted for isolation considerations. Ebola Screen: Patient negative for fever greater than or equal to 101.5 degrees Fahrenheit, and additional compatible Ebola Virus Disease symptoms. Initial Sepsis Screen: Does the patient meet any 2 criteria? RR > 20 per min. HR > 90 bpm. Yes Does the patient have a suspected source of infection? Yes: Productive cough/pneumonia. Risk Assessment: Do you want to hurt yourself or someone else? Patient reports no desire to harm self or others. Onset of symptoms was June 23, 2020. 13:55 Acuity: ROD 1 aa5 13:55 [facility] Historical: - Allergies: 13:55 No Known Allergies; aa5 - Home Meds: 13:55 potassium chloride 20 mEq Oral TbER once daily [Active]; furosemide 40 mg Oral tab 2 aa5 times per day [Active]; ferrous sulfate 325 mg (65 mg iron) oral tab twice a day [Active]; metoprolol tartrate 50 mg oral tab 2 times per day [Active]; - PMHx: 13:55 Hypertension; CHF; aa5 - PSHx: 13:55 colon resection; aa5 - Immunization history:: Adult Immunizations unknown. - Family history:: not pertinent. - Social history:: Smoking status: unknown. Screenin:00 Abuse screen: Denies threats or abuse. Denies injuries from another. Nutritional bp screening: No deficits noted. Tuberculosis screening: No symptoms or risk factors identified. Fall Risk None identified. Assessment: 13:55 General: Appears uncomfortable, Behavior is cooperative. Pain: Denies pain. Neuro: aa5 Level of Consciousness is alert, obeys commands, Drowsy . Oriented to person, place, time, situation. Cardiovascular: Heart tones S1 S2 present Edema 2+ pitting edema noted to sd lower legs Rhythm is regular. Respiratory: Reports shortness of breath cough that is productive, Pt unable to speak in complete sentences at this time due to SOB. Airway is patent Respiratory effort is labored, shallow, Respiratory pattern is symmetrical, tachypnea Breath sounds are diminished bilaterally. the patient has severe shortness of breath. GI: Abdomen is round obese. : No signs and/or symptoms were reported regarding the genitourinary system. EENT: No signs and/or symptoms were reported regarding the EENT system. Derm: Skin is dry, Skin is normal, Skin temperature is warm. Musculoskeletal: Range of motion: intact in all extremities. 14:00 Reassessment: RT at bedside to place on BiPAP and obtain ABG. iw 14:20 Reassessment: Pt tolerating Bi-PAP well, tachypnea noted, SOB noted. . aa5 14:45 Reassessment: Tolerating Bi-PAP well, tachypnea noted, pt reports SOB has improved. Pt aa5 remains drowsy but A\T\O x 4, pt remains unable to speak in full sentences at this time. Will continue to monitor. . 15:20 Reassessment: Pt with eyes closed, tolerating Bi-PAP well, pt remains drowsy, awakens aa5 to verbal and tactile stimuli, pt reports SOB has improved. Pt able to follow commands, pt is A\T\O x person/place/time. . 16:20 Reassessment: No changes from previously documented assessment. aa5 16:30 Reassessment: Dr. Nur (surgeon) speaking to pt's daughter over the phone about need aa5 for chest tube insertion. . 17:03 Reassessment: x-ray at bedside post chest tube insertion, pt tolerated procedure well. .aa5 18:00 Reassessment: Pt remains drowsy, pt awakens to verbal and tactile stimuli, pt able to aa5 follow commands, and is A\T\O x person/place/time. Tolerating Bi-PAP well, SOB has improved. Skin is normal/warm/dry. . Vital Signs: 13:55 BP 159 / 93; Pulse 115; Resp 28 S; Temp 98.8(O); Pulse Ox 100% on Non-rebreather mask; aa5 14:00 BP 130 / 82; Pulse 114; Resp 30 A; Pulse Ox 100% on BiPAP; aa5 14:45 BP 121 / 75; Pulse 106; Resp 26 A; Temp 99.3(C); Pulse Ox 95% on BiPAP; aa5 15:00 BP 109 / 59; Pulse 102; Resp 28; Pulse Ox 98% on BiPAP; aa5 16:00 BP 113 / 64; Pulse 98; Resp 32; Temp 98.6(C); Pulse Ox 100% on BiPAP; aa5 17:00 BP 93 / 58; Pulse 90; Resp 28; Temp 98.4(C); Pulse Ox 100% on BiPAP; aa5 17:10 BP 93 / 59; Pulse 88; Resp 26 A; Temp 98.3(C); Pulse Ox 100% on BiPAP; aa5 17:30 BP 89 / 55; Pulse 87; Resp 24 A; Pulse Ox 100% on BiPAP; aa5 17:45 BP 125 / 83; Pulse 81; Resp 24 A; Pulse Ox 100% on BiPAP; aa5 18:05 BP 119 / 59; Pulse 82; Resp 22 A; Temp 98.3(C); Pulse Ox 100% on BiPAP; aa5 17:00 MD notified of decreased BP aa5 ED Course: 13:55 Patient arrived in ED. aa5 13:55 Arm band placed on Patient placed in an exam room, on a stretcher. aa5 13:55 Patient has correct armband on for positive identification. Placed in gown. Bed in low aa5 position. Call light in reach. Side rails up X2. groundwater monitoring technician on. Pulse ox on. NIBP on. 13:56 Lizeth Pedro, NERIS is Primary Nurse. aa5 13:58 Facundo Aguilar MD is Attending Physician. [facility] 14:00 Inserted saline lock: 20 gauge in right forearm, using aseptic technique. Blood aa5 collected. 14:00 Initial lab(s) drawn, by sd, sent to lab. First set of blood cultures drawn by me. aa5 14:02 Maintain EMS IV. Dressing intact. Good blood return noted. Site clean \T\ dry. Gauge \T\ iw site: 18 LAC. 14:13 Second set of blood cultures drawn by me. aa5 14:30 COVID swab sent to lab. Flu and/or RSV swab sent to lab. aa5 14:30 Faria cath inserted, using sterile technique, 18 Fr., by sd, balloon inflated, to aa5 gravity drainage. 14:48 Triage completed. aa5 14:51 XRAY Chest (1 view) In Process Unspecified. EDMS 15:31 CT Chest For PE Angio In Process Unspecified. EDMS 16:24 Bill Olivas is Hospitalizing Provider. [facility] 16:58 Assist provider with chest tube insertion with 16 Fr. in right lateral chest wall. Tray bp was set up. Attached to pleur-e-vac. Chest tube inserted by Brandon Nur MD Placement verified by fluctuation of fluid, return of blood, Dressed with foam tape, Patient tolerated well. 18:20 Patient admitted, IV remains in place. aa5 Administered Medications: 14:45 Drug: Rocephin 1 grams Route: IV; Rate: per protocol; Site: left antecubital; aa5 15:00 Follow up: IV Status: Completed infusion aa5 17:00 Drug: Zosyn 3.375 grams Route: IVPB; Infused Over: 60 mins; Site: right forearm; aa5 18:00 Follow up: Response: No adverse reaction; IV Status: Completed infusion aa5 17:10 Drug: NS 0.9% 500 ml Route: IV; Rate: bolus; Site: left forearm; aa5 18:00 Follow up: IV Status: Completed infusion; IV Intake: 500ml aa5 Point of Care Testing: Blood Glucose: 14:29 Blood Glucose: 127 mg/dL; aa5 Ranges: Intake: 18:00 IV: 500ml; Total: 500ml. aa5 17:00 chest tube aa5 Output: 17:00 Drainage: 1500ml; Total: 1500ml. aa5 17:00 chest tube aa5 Outcome: 16:26 Decision to Hospitalize by Provider. erich 18:20 Patient left the ED. aa5 18:20 Admitted to ICU accompanied by nurse, via stretcher, with oxygen, on monitor, with aa5 chart. 18:20 Condition: stable Signatures: Dispatcher [employer] EDPA Facundo Aguilar MD MD cha Williams, Irene, RN RN Lizeth Pedro RN RN aa Dario Mcgill RN RN bp Corrections: (The following items were deleted from the chart) 14:48 13:55 Chief complaint: Chief complaint: aa5 aa5 15:03 13:55 Chief complaint: EMS states: Sudden onset of dyspnea at Dr. Andrade's office aa5 (wink cutter operator), initial BP was 180/120, RR40, initial O2 sat was 70% RA and increased to 98% upon O2 administration via non-rebreather. EMS reports pt was given Ativan 2mg IVP and Bi-PAP was attempted but pt did not tolerate Bi-PAP. EMS also reports administering Lasix 80mg IVP and Nitro paste. 18G to L AC by EMS. Chief complaint: EMS states: Sudden onset of dyspnea at Dr. Andrade's office (wink cutter operator), initial BP was 180/120, RR40, initial O2 sat was 70% RA and increased to 98% upon O2 administration via non-rebreather. EMS reports pt was given Ativan 2mg IVP and Bi-PAP was attempted but pt did not tolerate Bi-PAP. EMS also reports administering Lasix 80mg IVP and Nitro paste. 18G to L AC by EMS. Chief complaint: EMS states: Sudden onset of dyspnea at Dr. Andrade's office (wink cutter operator), initial BP was 180/120, RR40, initial O2 sat was 70% RA and increased to 98% upon O2 administration via non-rebreather. EMS reports pt was given Ativan 2mg IVP and Bi-PAP was attempted but pt did not tolerate Bi-PAP. EMS also reports administering Lasix 80mg IVP and Nitro paste. 18G to L AC by EMS. aa5 15:04 14:00 BP 159 / 93; Pulse 115bpm; Resp 28bpm; Spontaneous; Pulse Ox 100% Non-rebreather aa5 mask; iw 15:06 14:00 BP 159 / 93; Pulse 115bpm; Resp 28bpm; Spontaneous; Pulse Ox 100% Non-rebreather aa5 mask; Temp 98.8F Oral; aa5 17: 15:00 BP 109 / 59; Pulse 102bpm; Resp 28bpm; Pulse Ox 98%; bp aa5 17: 16:00 BP 113 / 64; Pulse 98bpm; Resp 32bpm; Pulse Ox 100%; bp aa5 17: 17:00 Pulse 90bpm; Resp 28bpm; Pulse Ox 100%; bp aa5 17:28 17:00 Pulse 90bpm; Resp 28bpm; Pulse Ox 100% BiPAP; Temp 98.4F Catheter; aa5 aa5 18:46 17:00 BP 93 / 58; Pulse 90bpm; Resp 28bpm; Pulse Ox 100% BiPAP; Temp 98.4F Catheter; aa5aa5 18:47 18:28 Patient left the ED. iw aa5 18:51 17:03 Reassessment: x-ray at bedside post chest tube insertion. aa5 aa5
[2020-06-23] MEDS ORDERED: PIPER/TAZO/NS 3.375gm 3.375 GM/100 ML BAG ONE (16:51)
--- NOTE | 2020-06-23 17:03 | P.OP ---
Preoperative diagnosis: Opacification of RIGHT Hemithorax - Effusion Postoperative diagnosis: Opacification of RIGHT Hemithorax - Effusion Primary procedure: Placement of RIGHT thoracostomy tube Anesthesia: Local 1% lidocaine Estimated blood loss: <2cc Specimen: pleural fluid sent Findings: straw- reddish pleural fluid sent Complications: None Drain(s): Other (THAL chest tube) Transferred to: Recovery Room Condition: Good
[2020-06-23 17:19] LABS: Urine Blood TRACE (NEG); Urine Glucose NEGATIVE (NEG); Urine Protein NEGATIVE (NEG)
--- NOTE | 2020-06-23 17:34 | OP ---
Date of Procedure: 06/23/2020 Surgeon: Brandon Nur MD, Preoperative Diagnosis: Complete opacification of right hemithorax due to pleural effusion. Postoperative Diagnosis: Complete opacification of right hemithorax due to pleural effusion. Procedure Performed: Placement of right thoracostomy chest tube. Anesthesia: Local 1% lidocaine used. Estimated Blood Loss: Less than 2 mL. Specimen: Pleural fluid sent for analysis. Finding: Straw reddish colored pleural fluid sent. Complications: None. Drains: Thal right thoracostomy small bore chest tube approximately 0.5 cm in size. Disposition: The patient remained in the ER recovery area in stable condition. Procedure In Detail: After informed consent was obtained from the patient's family and the patient, I anesthetized the area of the right midaxillary line down through the subcutaneous tissues with 1% l idocaine. I then made a small maxi incision in the skin overlying the chest wall with a scalpel 11 b lade. Then using a finer needle, I went over the rib and into the pleural space to withdraw straw-co lored reddish fluid. This was expressed easily. I then advanced the wire into the chest cavity at t his point and removed the needle, and the wire remained in place. Sequential dilatation was then per formed. Then, I placed the Thal chest tube into the thoracic cavity over the wire using Seldinger te chnique, aiming posterior cranially. Straw-colored fluid was emanating from this approximately 1500 cc came out of Pneumovax system immediately. The chest tube was then secured to the skin with a 2-0 nylon suture and a sterile dressing placed over top. The patient tolerated the procedure well withou t evidence of complication, remained in the ER in stable condition. All counts were correct at the e nd of the case. TK/MODL Voice ID: [id number] Report ID: [id number]
--- NOTE | 2020-06-23 17:43 | CON ---
Date of Consultation: 06/23/2020 Brief History Of Present Illness: The patient is an 80-year-old female with history of hypertension, brought in by EMS for respiratory distress. She received a dose of IV Ativan in the emergency depar tment and was stuporous at the time of the examination. She was speaking, but incoherently during my examination. Therefore, I spoke to the patient's family who agreed to consent for placement of a ri ght thoracostomy tube. After a large right pleural effusion with complete opacification, the hemotho rax was appreciated on both the chest x-ray as well as chest CT. The patient remained hypoxic with C O2 retention prior to the procedure and was started on BiPAP. After informed consent was obtained, salbador bishop proceeded with the procedure. See my operative note for details regarding this. Past medical hist ory and information are obtained from the chart predominantly and from the patient's family. Past Medical History: Significant for hypertension. Past Surgical History: Unable to obtain. Review of Systems: Unable to obtain. Social History: Unable to obtain. Physical Examination: General: The patient was in moderate respiratory distress during my examination on BiPAP, confused o therwise. HEENT: Normocephalic. Sclerae anicteric. Mucous membranes are moist. Oropharynx clear. Neck: Supple. No JVD. Chest: Normal expansion and excursion. Cardiovascular: Regular rate and rhythm. Pulmonary: Absent breath sounds on the right. Laboratory Data: Her pH was 7.4, pCO2 of 54, pO2 of 74, bicarb is 32, base excess 7.5, SpO2 was 93% on 40% O2. Her white blood cell count is 8.7, hemoglobin 10.8, hematocrit 36.1, platelet count 329, neutrophils are normal at 63%. Her PT 14.4, INR 1.23. Sodium 140, potassium 3.7, chloride 102, carb on dioxide 34, BUN 29, creatinine 0.9, glucose is 154. Lactic acid is currently pending. Calcium 9. 8, magnesium 2.4, total bilirubin 0.5, direct bilirubin 0.2, AST 20, ALT 17, alkaline phosphatase is 47. ProBNP 337. She had imaging performed, which included a chest x-ray, read officially by Dr. Eduard galeano as opacification of the right hemothorax probably due to a large pleural effusion. The patient additionally had a CTA of chest and thoracic, which officially read as pulmonary embolus has not seen and thoracic aortic aneurysm has not noted. Opacification of right hemothorax secondary to a very l arge full effusion, passive right atelectasis present, small left pleural effusion with left lower lo be atelectasis, small amount of ascites in the upper abdomen. Assessment And Plan: This is an 80-year-old female, who comes in with opacification of right hemotho rax. 1.Medical management. 2.Oxygen therapy and respiratory recovery. 3.I explained the risks, benefits, and alternatives of placement of right thoracostomy tube includin g, but not limited to bleeding, infection, damage to surrounding tissues, injury of the great vessels and lung, and need for further operation and procedure. The patient agrees to proceed as indicated. Thank you for this interesting consult. ROSA/REGGIE Voice ID: [id number] Report ID: [id number]
--- NOTE | 2020-06-23 18:53 | RAD REPORT ---
EXAM DESCRIPTION: Jason Single View06/23/2020 5:09 pm CLINICAL HISTORY: Device placement right chest tube placement IMPRESSION: A right chest tube has been placed. The tip lies within the upper right hemithorax. A pneumothorax is not seen. There has been significant evacuation of the pleural fluid
[2020-06-23] MEDS ORDERED: ONDANSETRON 4 MG/2 ML VIAL IV PRN (19:26)
[2020-06-23] MEDS: FUROSEMIDE 40 MG/4 ML VIAL IV SCH (19:26)
[2020-06-23] MEDS: HEPARIN 5000 UNIT/ML 1 ML VIAL SQ SCH (20:12)
[2020-06-23] MEDS ORDERED: HEPARIN 5000 UNIT/ML 1 ML VIAL ONE (20:15)
[2020-06-23] MEDS ORDERED: FUROSEMIDE 40 MG/4 ML VIAL ONE (20:15)
[2020-06-23] MEDS ORDERED: Levofloxacin 750mg IV 750 MG/150 ML BAG IV ONE (20:16)
[2020-06-23] MEDS: ALBUTEROL 2.5 MG/3 ML NEB SOL NEB SCH (20:50)
[2020-06-23] MEDS: IPRATROPIUM BROM 0.5MG/2.5ML NEB SCH (20:50)
[2020-06-23 20:59] LABS: Appearance TURBID (CLEAR); Body Fluid Source PLEURAL; Color of fluid Red (COLORLESS)
[2020-06-23 21:00] LABS: Body Fluid WBC 2141 /mm^3
[2020-06-23] MEDS ORDERED: Levofloxacin 750mg IV 750 MG/150 ML BAG IV SCH (21:00)
[2020-06-23] MEDS ORDERED: ALBUTEROL 2.5 MG/3 ML NEB SOL ONE (21:05)
[2020-06-23] MEDS ORDERED: IPRATROPIUM BROM 0.5MG/2.5ML ONE (21:06)
[2020-06-23] MEDS ORDERED: FENTANYL CITR 100 MCG/2 ML IV PRN (21:36)
[2020-06-23] MEDS ORDERED: FENTANYL CITR 100 MCG/2 ML ONE (22:43)
[2020-06-24] MEDS: FUROSEMIDE 40 MG/4 ML VIAL IV SCH ×3 (01:00→19:30)
[2020-06-24] MEDS: ALBUTEROL 2.5 MG/3 ML NEB SOL NEB SCH ×2 (01:15→06:20)
[2020-06-24] MEDS: IPRATROPIUM BROM 0.5MG/2.5ML NEB SCH ×2 (01:15→06:20)
[2020-06-24] MEDS ORDERED: ALBUTEROL 2.5 MG/3 ML NEB SOL ONE ×2 (01:25→06:28)
[2020-06-24] MEDS ORDERED: IPRATROPIUM BROM 0.5MG/2.5ML ONE ×2 (01:25→06:28)
[2020-06-24] MEDS: HEPARIN 5000 UNIT/ML 1 ML VIAL SQ SCH ×3 (01:29→17:08)
[2020-06-24] MEDS ORDERED: HEPARIN 5000 UNIT/ML 1 ML VIAL ONE ×3 (01:42→17:22)
[2020-06-24] MEDS ORDERED: FUROSEMIDE 40 MG/4 ML VIAL ONE ×3 (01:42→19:44)
[2020-06-24 05:28] LABS: Absolute Lymphocytes (CBC) 1.5 K/uL (0.7-4.9); Basophils % 0.7 % (0-1.3); Hematocrit 33.8 % (36.0-45.0); Lymphocytes % 19.7 % (15.3-44.8); MPV 9.1 fL (7.6-11.3); RBC Red Blood Cell Count 3.54 M/uL (3.86-4.86)
[2020-06-24 05:52] LABS: Albumin 2.7 g/dL (3.4-5.0); Bilirubin Total 0.5 mg/dL (0.2-1.0); Phosphorus 4.5 mg/dL (2.5-4.9); Potassium 4.1 mmol/L (3.5-5.1); Protein, Total 7.4 g/dL (6.4-8.2); Thyroid Stimulating Hormone 2.16 uIU/mL (0.360-3.740)
--- NOTE | 2020-06-24 08:01 | RAD REPORT ---
EXAM DESCRIPTION: Jason Single View06/24/2020 5:04 am CLINICAL HISTORY: right pleural effusion COMPARISON: June 23 FINDINGS: Right chest tube remains in place without visualization of a pneumothorax. Small pleural effusions Opacity overlying the mid and lower right lung may represent atelectasis, infiltrate or pulmonary dennis ma. Mild left lung opacities The heart remains enlarged
--- NOTE | 2020-06-24 08:34 | P.CNS ---
Date of Consult: 06/24/20 Reason for Consult: Pleural effusion Chief Complaint: Shortness of breath History of Present Illness: Patient is 80 years of age admitted with worsening dyspnea over the past couple of weeks and was found to have a significant right-sided pleural effusion status post chest tube insertion he has been feeling a little better prior history of colon cancer was treated years ago no prior history of any other malignancy in a denies any fever chills or chest pain feeling better there has been no air leak a moderate right-sided pleural effusion was also noticed on June 09 Allergies No Known Allergies Allergy (Verified 06/23/20 19:05) Home Medications: Ferrous Sulfate [Feosol] 325 mg PO BID 06/23/20 Furosemide [Lasix] 40 mg PO BIDL 06/23/20 Metoprolol Tartrate [Lopressor*] 1 tab PO BID 06/23/20 Potassium Chloride 20 meq PO DAILY 06/23/20 - Past Medical/Surgical History Diabetic: No -: Hypertension -: CHF -: colon resection - Family History Mother Medical History: Hypertension - Social History Smoking Status: Unknown if ever smoked Alcohol use: No CD- Drugs: No Place of Residence: Home Review of Systems 10-point ROS is otherwise unremarkable Physical Examination Temp Pulse Resp BP Pulse Ox 96.3 F L 74 22 H 102/61 100 06/24/20 08:00 06/24/20 08:00 06/24/20 08:00 06/24/20 08:00 06/24/20 08:00 General: Alert, Oriented x3 Neck: Supple Respiratory: Clear to auscultation bilaterally, Friction rub Cardiovascular: Regular rate/rhythm Gastrointestinal: Normal bowel sounds, Soft and benign Musculoskeletal: No clubbing Integumentary: No rashes, No breakdown Laboratory Data (last 24 hrs) 06/23/20 14:00: PT 14.4 H, INR 1.23 06/23/20 14:00: WBC 8.7, Hgb 11.8 L, Hct 36.1, Plt Count 329 06/23/20 14:00: Sodium 140, Potassium 3.7, BUN 29 H, Creatinine 0.99, Glucose 154 H, Magnesium 2.4, Total Bilirubin 0.5, AST 20, ALT 17, Alkaline Phosphatase 47 - Problems (1) Pleural effusion, right Current Visit: Yes Status: Acute Plan: Patient is 80 years of age admitted with acute dyspnea significant right-sided pleural effusion status post chest tube insertion pleural effusion was also noticed in Jun/there is no evidence of underlying sepsis as no air leak either will plan to Dc the BiPAP Dc Faria catheter was send the pleural fluid off for LDH glucose Gram stain pending CT angiogram did not show any evidence of pulmonary embolism remote history of colon cancer and was resected chemistries cytology ordered on the pleural fluid patient has a history of CHF
[2020-06-24] MEDS ORDERED: ALBUTEROL 2.5 MG/3 ML NEB SOL NEB PRN (08:35)
[2020-06-24] MEDS ORDERED: IPRATROPIUM BROM 0.5MG/2.5ML NEB PRN (08:38)
--- NOTE | 2020-06-24 13:14 | P.PN ---
Subjective Date of Service: 06/24/20 Chief Complaint: Shortness of breath Subjective: Improving (breathing more comfortably this morning, on BIPAP, s/p thoracentesis yesterday) Review of Systems 10-point ROS is otherwise unremarkable Physical Examination - Vital Signs Temperature: 98.2 F Blood Pressure: 97/56 Pulse: 83 Respirations: 13 Pulse Ox (%): 94 - Studies Laboratory Data (last 24 hrs) 06/23/20 14:00: PT 14.4 H, INR 1.23 06/23/20 14:00: WBC 8.7, Hgb 11.8 L, Hct 36.1, Plt Count 329 06/23/20 14:00: Sodium 140, Potassium 3.7, BUN 29 H, Creatinine 0.99, Glucose 154 H, Magnesium 2.4, Total Bilirubin 0.5, AST 20, ALT 17, Alkaline Phosphatase 47 Microbiology Data (last 24 hrs): 06/23/20 14:13 Blood - Blood Anaerobic Blood Culture - Final Assessment & Plan Physician Review Additional Text: Physical Exam: Gen: NAD, alert HEENT: sclera anicteric, normal conjuctiva CV: RRR, 2+ lower extremity edema bilaterally Pulm: dimisihed at R base, chest tube in place Abd: soft, NTND Ext: no rash Problem List Acute hypoxemic respiratory failure due to large R pleural effusion, with hy percapnia HTN CHF, unknown type -s/p thoracentesis of R pleural effusion on 06/23 by general surgery - labs sent -breathing more comfortably -COVID negative -pulm consulted, dc'd antibiotics, fluid does not appear infectious -echo pending, cardiology consulted given h/o CHF -continue Lasix IV 40mg BID, pt with hypotension, will monitor closely -reports remote h/o colon cancer s/p surgery now, no other malignancy Dispo: anticipate dc home in 24-48hrs . Time Spent Managing Pts Care (In Minutes): 35
[2020-06-24 16:30] VITALS: BMI 39.6
--- NOTE | 2020-06-24 17:16 | EKG ---
Test Date: 2020-06-23 Test Time: 14:02:23 Insurance Verification Clerk: NADIR MEASUREMENT RESULTS: Intervals: Rate: 114 OH: 152 QRSD: 78 QT: 342 QTc: 471 [place]: P: 54 OH: 152 QRS: 49 T: 7 INTERPRETIVE STATEMENTS: Sinus tachycardia with premature atrial complexes Otherwise normal ECG Compared to ECG 03/02/2018 08:08:23 Atrial premature complex(es) now present Sinus rhythm no longer present Electronically Signed On 06-24-20 17:13:07 CERTIFIED SURGICAL TECHNOLOGIST by Desmond Andrade
--- NOTE | 2020-06-24 20:15 | P.PN ---
Subjective Date of Service: 06/24/20 Chief Complaint: Shortness of breath Subjective: Improving (Patient has no shortness of breath or other complaints.) Physical Examination - Vital Signs Temperature: 98.4 F Blood Pressure: 111/64 Pulse: 92 Respirations: 29 Pulse Ox (%): 99 - Physical Exam General: Alert, In no apparent distress, Cooperative HEENT: Mucous membr. moist/pink Respiratory: Clear to auscultation bilaterally, Normal air movement, Other (RIGHT chest tube in place on water seal functioning well) - Studies Microbiology Data (last 24 hrs): 06/23/20 14:13 Blood - Blood Anaerobic Blood Culture - Final Assessment And Plan - Current Problems (Diagnosis) (1) Pleural effusion, right Current Visit: Yes Status: Acute Plan: - Water seal for chest tube - daily chest x rays - serial exams - continue medical management Physician Review Additional Text: Physical Exam: Gen: NAD, alert HEENT: sclera anicteric, normal conjuctiva CV: RRR, 2+ lower extremity edema bilaterally Pulm: dimisihed at R base, chest tube in place Abd: soft, NTND Ext: no rash Problem List Acute hypoxemic respiratory failure due to large R pleural effusion, with hypercapnia HTN CHF, unknown type -s/p thoracentesis of R pleural effusion on 06/23 by general surgery - labs sent -breathing more comfortably -COVID negative -pulm consulted, dc'd antibiotics, fluid does not appear infectious -echo pending, cardiology consulted given h/o CHF -continue Lasix IV 40mg BID, pt with hypotension, will monitor closely -reports remote h/o colon cancer s/p surgery now, no other malignancy Dispo: anticipate dc home in 24-48hrs .
[2020-06-24] MEDS: GLUCERNA SHAKE 237 ML CAN PO SCH (21:13)
[2020-06-25] MEDS: HEPARIN 5000 UNIT/ML 1 ML VIAL SQ SCH ×3 (00:49→15:54)
[2020-06-25 06:36] LABS: Absolute Lymphocytes (CBC) 1.5 K/uL (0.7-4.9); Basophils % 0.2 % (0-1.3); Hematocrit 32.4 % (36.0-45.0); Lymphocytes % 23.9 % (15.3-44.8); MPV 9.1 fL (7.6-11.3); RBC Red Blood Cell Count 3.41 M/uL (3.86-4.86)
[2020-06-25 06:54] LABS: Magnesium 2.2 mg/dL (1.8-2.4); Potassium 3.7 mmol/L (3.5-5.1)
--- NOTE | 2020-06-25 08:25 | ECHO ---
HEIGHT: 4 ft 11 in WEIGHT: 196 lb 0 oz DATE OF STUDY: 06/24/[address]: Cezar Beltran MD 2-DIMENSIONAL: YES M.MODE: YES DOPPLER: YES COLOR FLOW: YES TDS: PORTABLE: DEFINITY: BUBBLE STUDY: DIAGNOSIS: PLEURAL EFFUSION CARDIAC HISTORY: CATHERIZATION: SURGERY: PROSTHETIC VALVE: PACEMAKER: MEASUREMENTS (cm) DIASTOLIC (NORMALS) SYSTOLIC (NORMALS) IVSd 1.0 (0.6-1.2) LA Diam (1.9-4.0) LVEF 75% LVIDd 3.7 (3.5-5.7) LVIDs 2.1 (2.0-3.5) %FS 43% LVPWd 1.0 (0.6-1.2) Ao Diam 2.4 (2.0-3.7) 2 DIMENSIONAL ASSESSMENT: RIGHT ATRIUM: NORMAL LEFT ATRIUM: NORMAL RIGHT VENTRICLE: NORMAL LEFT VENTRICLE: NORMAL TRICUSPID VALVE: NORMAL MITRAL VALVE: MITRAL ANNULAR CALCIFICATION PULMONIC VALVE: NORMAL AORTIC VALVE: SCLEROSIS PERICARDIAL EFFUSION: NONE AORTIC ROOT: NORMAL LEFT VENTRICULAR WALL MOTION: NORMAL DOPPLER/COLOR FLOW: NORMAL COMMENTS: NORMAL LEFT VENTRICULAR SIZE AND FUNCTION. MITRAL ANNULAR CALCIFICATION. AORTIC SCLEROSIS. NO EFFUSION. TECHNOLOGIST: BRANDY FLOR
[2020-06-25] MEDS ORDERED: POTASSIUM CL SA 10 MEQ TAB PO ONE (09:00)
[2020-06-25] MEDS: FUROSEMIDE 40 MG/4 ML VIAL IV SCH ×2 (09:01→21:26)
[2020-06-25] MEDS: GLUCERNA SHAKE 237 ML CAN PO SCH ×2 (09:04→21:27)
--- NOTE | 2020-06-25 09:17 | P.PN ---
Subjective Date of Service: 06/25/20 Chief Complaint: Shortness of breath Subjective: Improving (Patient feels well, no shortness of breath.) Physical Examination - Vital Signs Temperature: 98.4 F Blood Pressure: 117/55 Pulse: 92 Respirations: 18 Pulse Ox (%): 94 - Physical Exam General: Alert, In no apparent distress, Cooperative Respiratory: Clear to auscultation bilaterally, Other (Chest tube in place, draining serous fluid. no air leak on water seal) - Studies Microbiology Data (last 24 hrs): 06/23/20 14:55 Clean Catch Urine [place] Count - Final No growth. 06/23/20 14:55 Clean Catch Urine - Final No growth. 06/23/20 14:13 Blood - Blood Anaerobic Blood Culture - Final Assessment And Plan - Current Problems (Diagnosis) (1) Pleural effusion, right Current Visit: Yes Status: Acute Plan: - Water seal for chest tube, will review need for pleurodesis with Dr. Reed, and keep chest tube for now - daily chest x rays - serial exams - continue medical management - await analysis of pleural fluid Physician Review Additional Text: Physical Exam: Gen: NAD, alert HEENT: sclera anicteric, normal conjuctiva CV: RRR, 2+ lower extremity edema bilaterally Pulm: dimisihed at R base, chest tube in place Abd: soft, NTND Ext: no rash Problem List Acute hypoxemic respiratory failure due to large R pleural effusion, with hypercapnia HTN CHF, unknown type -s/p thoracentesis of R pleural effusion on 06/23 by general surgery - labs sent -breathing more comfortably -COVID negative -pulm consulted, dc'd antibiotics, fluid does not appear infectious -echo pending, cardiology consulted given h/o CHF -continue Lasix IV 40mg BID, pt with hypotension, will monitor closely -reports remote h/o colon cancer s/p surgery now, no other malignancy Dispo: anticipate dc home in 24-48hrs .
--- NOTE | 2020-06-25 10:46 | RAD REPORT ---
EXAM DESCRIPTION: Jason Single View06/25/2020 4:42 am CLINICAL HISTORY: Chest pain COMPARISON: June 24, 2020 FINDINGS: Worsening in the bilateral pulmonary opacities right greater than left. The heart is norm al size. A left chest tube in place without visualization of a pneumothorax IMPRESSION: Worsening in the bilateral pulmonary opacities may represent pulmonary edema or pneumoni a. Small left pleural effusion The prominent opacification the right hemithorax may represent a combination of pleural effusion, ate lectasis and/or pulmonary edema/pneumonia
--- NOTE | 2020-06-25 11:55 | RAD REPORT ---
EXAM DESCRIPTION: Jason Single View06/25/2020 11:16 am CLINICAL HISTORY: Shortness of breath COMPARISON: June FINDINGS: No significant change in the opacification of the right hemithorax probably a combination of pleural effusion, atelectasis and pneumonia/pulmonary edema Right chest tube in place without visualization of a pneumothorax. Small to moderate left pleural effusion is suspected with basilar atelectasis. Heart remains enlarged
--- NOTE | 2020-06-25 13:39 | CON ---
Date of Consultation: 06/24/2020 Reason For Consultation: Pleural effusion and history of congestive heart failure. History Of Present Illness: Ms. Astudillo is an 80-year-old black woman with history of hypertension, chronic diastolic congestive heart failure, colon cancer status post colon resection, came into the e mergency room with chest discomfort and shortness of breath, was found to have a large pleural effusi on on the right side. She is now status post chest tube placement by Dr. Nur and is feeling bett er. Denied chest pain, nausea, vomiting, diaphoresis. Had PND, orthopnea. No pedal edema. No palp itations or syncope. Denied any fever or chills. Past Medical History: As stated above. Allergies: NONE. Review of Systems: Negative. Social History: Negative. Family History: Negative. Medications: Include Lasix, metoprolol, . Physical Examination: General: She was pleasant, normal sinus rhythm, afebrile. No acute distress. Chest tube in place, still draining. HEENT: Negative. Neck: Supple. No bruit. Chest: Revealed clear left lung. In the right lung with chest tube in place. Cardiac: Revealed a regular rhythm and rate with S4, gallops. Abdomen: Benign. Extremities: Revealed no clubbing, cyanosis, or edema. Diagnostic Data: Fairly unremarkable except for the chest x-ray showing the pleural effusion. Impression And Plan: Pleural effusion status post chest tube, pathology pending show. Sh e has hypertension that is well controlled. She has chronic diastolic congestive heart failure that is controlled on metoprolol and Lasix. I will continue to follow her. No need for any cardiac estephania p at this point. NB/MODL Voice ID: [id number] Report ID: [id number]
[2020-06-25] MEDS ORDERED: METOPROLOL TAR 25 MG TAB PO ONE (15:00)
[2020-06-25 15:29] LABS: Blood Gas Oxyhemoglobin 95.1 % (94-97)
--- NOTE | 2020-06-25 20:37 | P.PN ---
Subjective Date of Service: 06/25/20 Chief Complaint: Shortness of breath Subjective: Other (feeling ok this morning, denied SOB, on 2L NC) Review of Systems 10-point ROS is otherwise unremarkable Physical Examination - Vital Signs Temperature: 97.9 F Blood Pressure: 128/77 Pulse: 119 Respirations: 18 Pulse Ox (%): 97 - Studies Microbiology Data (last 24 hrs): 06/23/20 14:55 Clean Catch Urine [place] Count - Final No growth. 06/23/20 14:55 Clean Catch Urine - Final No growth. Assessment & Plan Physician Review Additional Text: Physical Exam: Gen: NAD, alert HEENT: sclera anicteric, normal conjuctiva CV: RRR, 2+ lower extremity edema bilaterally Pulm: dimisihed at R base, chest tube in place, ~100cc output Abd: soft, NTND Ext: no rash Problem List Acute hypoxemic respiratory failure due to large R pleural effusion, with hypercapnia HTN CHF, unknown type sinus tachycardia -s/p thoracentesis of R pleural effusion on 06/23 by general surgery - labs sent -breathing more comfortably this morning -COVID negative -pulm consulted, dc'd antibiotics, fluid does not appear infectious -echo with normal EF, cardiology consulted given ?h/o CHF -continue Lasix IV 40mg BID, monitor closey -reports remote h/o colon cancer s/p surgery now, no other malignancy -sinus tachycardia on telemetry, will restart home metoprolol, monitor BP closely Dispo: anticipate dc home in 24-48hrs . Time Spent Managing Pts Care (In Minutes): 35
[2020-06-26] MEDS: HEPARIN 5000 UNIT/ML 1 ML VIAL SQ SCH ×2 (00:51→10:00)
[2020-06-26] MEDS: METOPROLOL TAR 50 MG TAB PO SCH ×3 (05:21→20:31)
[2020-06-26] MEDS ORDERED: METOPROLOL TAR 25 MG TAB PO SCH (06:00)
[2020-06-26 06:14] LABS: Absolute Lymphocytes (CBC) 1.5 K/uL (0.7-4.9); Basophils % 0.4 % (0-1.3); Hematocrit 31.9 % (36.0-45.0); Lymphocytes % 24.7 % (15.3-44.8); MPV 8.7 fL (7.6-11.3); RBC Red Blood Cell Count 3.35 M/uL (3.86-4.86)
[2020-06-26 06:31] LABS: Magnesium 2.3 mg/dL (1.8-2.4); Potassium 3.7 mmol/L (3.5-5.1)
--- NOTE | 2020-06-26 07:10 | RAD REPORT ---
EXAM DESCRIPTION: RAD - Chest Single View - 06/26/2020 4:44 am CLINICAL HISTORY: Patient has a chest tube, pleural effusion, shortness of breath COMPARISON: Portable June 25 TECHNIQUE: AP portable chest image was obtained 06/26/2020 4:44 am . FINDINGS: No change in positioning of the chest tube. There is no right-sided pneumothorax identifia ble. No new lung parenchymal process seen. Lower lung field atelectasis is present with bilateral pleural effusions. No substantial change in pleural fluid identified. Large cardiac silhouette remains. Vascular engorgement is still present. IMPRESSION: Stable chest from June 25
[2020-06-26] MEDS: FUROSEMIDE 40 MG/4 ML VIAL IV SCH (09:00)
[2020-06-26] MEDS ORDERED: POTASSIUM CL SA 10 MEQ TAB PO ONE ×2 (09:00→10:00)
[2020-06-26] MEDS ORDERED: ENOXAPARIN 40 MG/0.4 ML SQ SCH (09:00)
--- NOTE | 2020-06-26 09:56 | RAD REPORT ---
EXAM DESCRIPTION: CT - Thorax Wo Con - 06/26/2020 9:19 am CLINICAL HISTORY: hypoxia, effusion, eval for any mass/pneumonia COMPARISON: Chest For Pe Angio dated 06/23/2020 TECHNIQUE: Axial 5 mm thick images of the chest were obtained without IV contrast. All CT scans are performed using dose optimization technique as appropriate and may include automated exposure control or mA/KV adjustment according to patient size. FINDINGS: Chest tube is in place entering the fifth intercostal space directed anteriorly. Did not c hest tube is in the anterior right apex. There is a trace 1% pneumothorax medial right apex. Right lo wer lobe atelectasis present. There is partial atelectasis of the right middle lobe and minimal atele ctasis in the right upper lobe. No right-sided mass or infiltrate identified. Moderate fluid remains in the posterior aspect of the chest. Contour of the pleural fluid suggest loculation. Small loculate d pockets of fluid are present in the posterior right apex. A small to moderate left-sided pleural ef fusion is present showing the crescent-shaped generally associated with free pleural fluid. Partial a telectasis of the left lower lobe present. No underlying infiltrate or mass identified on the left. N o left-sided pneumothorax. No abnormal mediastinal or hilar masses or lymphadenopathy seen. No gross aortic or pulmonary artery finding suspected. Assessment is limited in the absence of IV contrast. No cardiomegaly or pericardi al effusion. No chest wall mass or abnormal axillary lymphadenopathy. Limited upper abdomen imaging shows nodular contour to the liver. Trace amount of ascites adjacent to the liver capsule. IMPRESSION: Moderate volume of pleural fluid on the right along the posterior aspect of the chest. C ontour the fluid suggests loculation. Right-sided chest tube enters the sixth intercostal space and extends superiorly in the anterior ches t. Tip is in the anterior apex of the right hemithorax where there is a trace 1% pneumothorax. Small to moderate left pleural effusion without evidence for loculation. Bilateral atelectasis changes are present as detailed. Underlying mass or infiltrate not seen.
[2020-06-26] MEDS: GLUCERNA SHAKE 237 ML CAN PO SCH ×2 (10:01→20:32)
--- NOTE | 2020-06-26 14:11 | P.PN ---
Subjective Date of Service: 06/26/20 Chief Complaint: Respiratory failure Patient is still complaining of shortness of breath no change since chest tube she does have a loculated effusions worse on the right side with an minimal apical pneumothorax otherwise she feels fine been feeling short of breath for the past couple of weeks denies any fever or chills Review of Systems General: Weakness Respiratory: Shortness of Breath Physical Examination - Vital Signs Temperature: 98.3 F Blood Pressure: 111/80 Pulse: 90 Respirations: 19 Pulse Ox (%): 95 - Physical Exam General: Alert, Oriented x3, Moderate distress Respiratory: Clear to auscultation bilaterally, Diminished (Diminished on the right side) Cardiovascular: No edema, Regular rate/rhythm, Normal S1 S2 Assessment & Plan - Problems (Diagnosis) (1) Pleural effusion, right Current Visit: Yes Status: Acute Plan: Patient is status post right-sided chest tube as he has significant loculations worse on the right side may be causing her hypoxemia due to trapped lung patient is hypoxic hypercapnic no evidence of sepsis recommend transfer to CT surgery for decortication pleural fluid no evidence of sepsis pleural fluid was negative for sepsis cytology in the pleural fluid is pending no prior history of mal ignancy patient has normal left ventricular function reduce dose of Lasix stable for transfer
--- NOTE | 2020-06-26 15:40 | P.PN ---
Subjective Date of Service: 06/26/20 Chief Complaint: Respiratory failure Subjective: Other (Dyspnea on exertion yesterday, slightly improved today, however still persists. Patient without any new complaints today. on 4L NC) Review of Systems 10-point ROS is otherwise unremarkable Physical Examination - Vital Signs Temperature: 98.3 F Blood Pressure: 111/80 Pulse: 90 Respirations: 19 Pulse Ox (%): 95 Assessment & Plan Physician Review Additional Text: Physical Exam: Gen: NAD, alert HEENT: sclera anicteric, normal conjuctiva CV: RRR, 1-2+ lower extremity edema bilaterally Pulm: dimisihed at R base, chest tube in place, ~100cc output Abd: soft, NTND Ext: no rash Problem List Acute hypoxemic respiratory failure due to large R pleural effusion, with hypercapnia HTN CHF, unknown type sinus tachycardia -s/p thoracentesis of R pleural effusion on 06/23 by general surgery - labs sent -pending cytology -continues with some dyspnea -COVID negative -pulm consulted, dc'd antibiotics, fluid does not appear infectious -echo with normal EF, cardiology consulted given questionable h/o CHF -continue Lasix IV 40mg BID, monitor closely -reports remote h/o colon cancer s/p surgery now, no other malignancy -sinus tachycardia improvement with re-initiation of home metoprolol -CT chest obtained today to further evaluate the is continued opacities and dyspnea on exertion. - consistent with multiple loculated effusions -discuss with pulmonology, patient requires transfer to tertiary care center where CT surgery can perform VATS procedure / decortication -family updated Dispo: initiated transfer process to tertiary care center - awaiting call backs . Time Spent Managing Pts Care (In Minutes): 45
--- NOTE | 2020-06-26 18:43 | P.DS ---
Admission Date: 06/23/20 Discharge Date: 06/26/20 Disposition: TRANSFER TO [facility] Discharge Condition: FAIR Reason for Admission: Respiratory failure, R pleural effusion Consultations: Pulmonology - Dr. Cezar Beltran General Surgery - Dr. Brandon Nur Procedures: CXR (06/23): Opacification of the right hemithorax probably due to a large pleural effusion CTA Chest (06/23): Negative for a pulmonary embolism. Opacification of the right hemithorax secondary to a very large pleural effusion. Passive right atelectasis is present. Small left pleural effusion with left lower lobe atelectasis. Small amount ascites upper abdomen CXR (06/24): Right chest tube remains in place without visualization of a pneumothorax. Small pleural effusions. Opacity overlying the mid and lower right lung may represent atelectasis, infiltrate or pulmonary edema. Mild left lung opacities CXR( 06/25): No significant change in the opacification of the right hemithorax probably a combination of pleural effusion, atelectasis and pneumonia/pulmonary edema. Right chest tube in place without visualization of a pneumothorax. Small to moderate left pleural effusion is suspected with basilar atelectasis. Heart remains enlarged CT Chest (06/26): Moderate fluid remains in the posterior aspect of the chest. Contour of the pleural fluid suggest loculation. Small loculated pockets of fluid are present in the posterior right apex. A small to moderate left-sided pleural effusion is present showing the crescent-shaped generally associated with free pleural fluid. Right-sided chest tube enters the sixth intercostal space and extends superiorly in the anterior chest. Tip is in the anterior apex of the right hemithorax where there is a trace 1% pneumothorax. Small to moderate left pleural effusion without evidence for loculation. Bilateral atelectasis changes are present as detailed. Underlying mass or infiltrate not seen. TTE (06/24): normal LV size and function (EF: 75%), mitral annular calcification. aortic sclerosis. no effusion. Pleural fluid analysis Color: Red, Appearance: Turbid. Supernatant color: xanthochromic. WBC: 2141, RBC: 82306, Neutrophils: 43, Lymphocytes: 43, Eosinophils: 0, Monocytes: 14 Problem List Acute hypoxemic respiratory failure secondary to large right pleural effusion Hypertension Diastolic CHF sinus tachycardia h/o colon cancer s/p resection Brief History of Present Illness: 80yo F, PMH: HTN, presented to ED via EMS due to respiratory distress. Patient received IV Ativan on way to ED and was stuporous during assessment and could not provide much history. CXR and CTA chest demonstrated large pleural effusion completely filling the right hemothorax. ABG consistent with hypoxemia and CO2 retention. Patient was placed on BiPAP. Labwork is negative for leukocytosis, patient was afebrile. Hospital Course: Patient underwent right side thoracentesis by general surgery on 06/23. Cytology that was sent out and still pending at time of transfer. She was diuresed with 40mg IV Lasix BID. (increased from 40mg BID PO at home). Initially patient had improvement was tolerating 2 L nasal cannula. Chest tube with only 100-110 cc/day output. On 06/25 patient is noted become dyspneic on exertion after working with physical therapy. Repeat CT chest revealed loculated right- sided effusions. She was transferred to [facility] where CT surgery will evaluate patient for possible VATS / decortication. Patient has remained afebrile, no leukocytosis. Vital Signs/Physical Exam: Temp Pulse Resp BP Pulse Ox 98.0 F 75 18 112/57 L 98 06/26/20 16:00 06/26/20 16:00 06/26/20 16:00 06/26/20 16:00 06/26/20 16:00 General: Alert, In no apparent distress, Oriented x3 HEENT: Sclerae nonicteric Respiratory: Other (diminished at bilateral basese. Crackles on R lung. on 2L NC. R chest tube in place to waterseal) Cardiovascular: No edema (1+ bilateral to knees), Regular rate/rhythm Gastrointestinal: Soft and benign, Non-distended, No tenderness Musculoskeletal: No erythema, No tenderness Integumentary: No rashes, No significant lesion Neurological: Normal speech, Normal affect Laboratory Data at Discharge: WBC 6.2 K/uL (4.3-10.9) 06/26/20 05:47 Hgb 10.2 g/dL (12.0-15.0) L 06/26/20 05:47 Hct 31.9 % (36.0-45.0) L 06/26/20 05:47 Plt Count 232 K/uL (152-406) 06/26/20 05:47 PT 14.4 SECONDS (9.5-12.5) H 06/23/20 14:00 INR 1.23 06/23/20 14:00 Sodium 141 mmol/L (136-145) 06/26/20 05:47 Potassium 3.7 mmol/L (3.5-5.1) 06/26/20 05:47 BUN 22 mg/dL (7-18) H 06/26/20 05:47 Creatinine 0.88 mg/dL (0.55-1.3) 06/26/20 05:47 Glucose 114 mg/dL (74-106) H 06/26/20 05:47 Phosphorus 4.5 mg/dL (2.5-4.9) 06/24/20 05:10 Magnesium 2.3 mg/dL (1.8-2.4) 06/26/20 05:47 Total Bilirubin 0.5 mg/dL (0.2-1.0) 06/24/20 05:10 AST 16 U/L (15-37) 06/24/20 05:10 ALT 14 U/L (12-78) 06/24/20 05:10 Alkaline Phosphatase 39 U/L (45-117) L 06/24/20 05:10 Troponin I < 0.02 ng/mL (0.0-0.045) 06/23/20 23:04 Home Medications: Ferrous Sulfate [Feosol] 325 mg PO BID 06/23/20 Furosemide [Lasix] 40 mg PO BIDL 06/23/20 Metoprolol Tartrate [Lopressor*] 1 tab PO BID 06/23/20 Potassium Chloride 20 meq PO DAILY 06/23/20 Followup: Meseret Barrera GLUER [Primary Care Provider] - Time spent managing pt's care (in minutes): 60
[2020-06-26 20:34] VITALS: BP 132/56
[2020-06-26 20:50] VITALS: O2SAT 93
[2020-06-26 23:19] VITALS: TEMP 98.5
[2020-06-27] MEDS ORDERED: FUROSEMIDE 40 MG/4 ML VIAL IV SCH (09:00)
--- NOTE | 2020-06-30 11:15 | PN ---
Date of Progress Note: 06/25/2020 Ms. Astudillo was seen on 06/24/2020. She was seen for pleural effusion, status post chest tube placem ent. Pathology is pending. She has hypertension that is well controlled. She has chronic diastolic congestive heart failure that is well controlled on metoprolol and Lasix. No need for cardiac estephania p was recommended. The patient is being followed by Dr. Nur and Dr. Beltran. Significant locul ations were worse on the right side, maybe causing some hypoxemia due to trapped lung. The patient w as hypoxic and hypercapnic without any evidence of CT. Recommendation was to transfer to CT Surgery for decortication of the pleural fluid. The fluid was negative for sepsis. Cytology was pending. I agree with Dr. Beltran's plan. No changes in cardiac planning. JASMIN/REGGIE Voice ID: [id number] Report ID: [id number]
== END 2020-06-26 21:58 | disposition short-term general hospital (02) | DRG 186 ==
LOC: ER 13:51 → ERHOLD 15:51 → 2ND 06-24 20:42
PROVIDERS: ADMIT Internal Medicine; ATTEND Hospitalist
PROC: 0W9930Z Drainage of Right Pleural Cavity with Drainage Device, Percutaneous Approach (ICD-10-PCS; principal; 2020-06-23)
PROC: 5A09457 Assistance with Respiratory Ventilation, 24-96 Consecutive Hours, Continuous Positive Airway Pressure (ICD-10-PCS; 2020-06-23)
DX: J90 Pleural effusion, not elsewhere classified (principal); J96.01 Acute respiratory failure with hypoxia; J96.02 Acute respiratory failure with hypercapnia; I50.32 Chronic diastolic (congestive) heart failure; I11.0 Hypertensive heart disease with heart failure; R00.0 Tachycardia, unspecified; Z79.899 Other long term (current) drug therapy; Z85.038 Personal history of other malignant neoplasm of large intestine; Z20.822 Contact with and (suspected) exposure to COVID-19
CPT/HCPCS: 0240U; 36415; 51702; 71045; 71250; 71275; 80048; 80053; 80076; 81003; 82805; 82947; 83605; 83735; 83880; 84100; 84145; 84443; 84484; 85025; 85610; 87040; 87070; 87086; 87088; 88108; 88305; 89050; 93005; 93306; 94640; 94660; 96365; 96375; 97112; 97116; 97161; 97530; 99291; 99292; J0696; J1644; J1940; J2543; J3010; Q9967

== ENCOUNTER 2020-08-21 07:20 | Day surgery (SDC) | payer OTHER ==
[2020-08-21 07:56] LABS: Absolute Lymphocytes (CBC) 1.5 K/uL (0.7-4.9); Basophils % 0.3 % (0-1.3); Hematocrit 29.2 % (36.0-45.0); MPV 8.3 fL (7.6-11.3); RBC Red Blood Cell Count 3.04 M/uL (3.86-4.86)
[2020-08-21 07:59] LABS: Potassium 3.7 mmol/L (3.5-5.1)
[2020-08-21] MEDS ORDERED: Ringers Lactate 1,000 ML IV ONE (08:39)
[2020-08-21] MEDS ORDERED: CEFAZOLIN/SWI 1gm 1 GM/10 ML SYR ONE (08:40)
--- NOTE | 2020-08-21 09:06 | RAD REPORT ---
EXAM DESCRIPTION: RAD - Chest Pa And Lat (2 Views) - 08/21/2020 8:02 am CLINICAL HISTORY: STAT, SAME DAY SURGERY, BED 1 Chest pain. COMPARISON: Chest Single View dated 06/26/2020; Chest Single View dated 06/25/2020; Chest Single View dated 06/25/2020; Chest Single View dated 06/24/2020 FINDINGS: Minimal right and small to moderate left pleural effusion is noted. The heart is mildly en larged in size with a tortuous thoracic aorta. No displaced fractures.
[2020-08-21] MEDS ORDERED: NS 0.9% VIAL 20 ML ONE (09:24)
[2020-08-21] MEDS ORDERED: HEPARIN 5000 UNIT/ML 1 ML VIAL ONE (09:25)
[2020-08-21] MEDS ORDERED: FENTANYL CITR 100 MCG/2 ML ONE (10:21)
[2020-08-21] MEDS ORDERED: MIDAZOLAM HCL 2 MG/2 ML INJ ONE (10:21)
[2020-08-21] MEDS ORDERED: propofoL 200 MG/20 ML VIAL IV ONE (10:21)
[2020-08-21] MEDS ORDERED: ONDANSETRON 4 MG/2 ML VIAL ONE (10:21)
[2020-08-21] MEDS ORDERED: LIDOCAINE 2% MPF 5 ML VIAL ONE (10:22)
--- NOTE | 2020-08-21 10:43 | P.BOP ---
Preoperative diagnosis: ovarian cancer Postoperative diagnosis: same Primary procedure: 1. Left subclavian portacath placement Secondary procedure: 2. interpretation of fluoroscopy Estimated blood loss: <10cc Specimen: none Findings: as above Anesthesia: MAC Complications: None Implants: single lumen portacath Transferred to: Recovery Room Condition: Good
--- NOTE | 2020-08-21 11:27 | OP ---
Date of Procedure: 08/21/2020 Surgeon: Maninder Shell MD Preoperative Diagnosis: Ovarian cancer. Postoperative Diagnosis: Ovarian cancer. Procedures: 1.Placement of left subclavian Port-A-Cath. 2.Interpretation of fluoroscopy. Anesthesia: MAC plus local. Complications: None. Implants: A single-lumen Port-A-Cath. Indications: This is the case of an 80-year-old patient, who comes to us in need of ovarian cancer t reatment immediately. So, the Cancer Center sent the patient to us to put a Port-A-Cath today since the one is to tomorrow. The benefits, alternatives, and risks of Port-A-Cath placement were fully ex plained to the patient, which include, but not limited to infection, bleeding, damage to adjacent str uctures, anesthesia complication, pneumothorax, hemothorax, DVTs, pulmonary emboli, pericardiac tampo nade, HI, and even . She also understands this may not relieve any symptoms. She might need mo re than one surgical intervention. She understood, signed a consent. She understands also as soon a s she finishes chemotherapy using a Port-A-Cath, she should come back to have it removed. If she curt ps that because of the medical doctor's advise, then she has to request from them to at least monthly just a flush that Port-A-Cath to continue with the patency of that Port-A-Cath. She understood. e will do that. Procedure In Detail: The patient was brought to the operating room, placed in supine position. Anes thesia was done without complication. The left chest and neck were prepped and draped in usual steri le fashion. A time-out was called. The patient was placed in Trendelenburg position. We proceeded to inject local anesthetic followed by 18-gauge needle in the left subclavian vein at the first attem pt. A guidewire was passed through, passed into the superior vena cava using fluoroscopy. Needle wa s removed. A small incision was made in the left upper chest. After that, under fluoroscopy sreedharanc e, we proceeded to introduce the catheter through the guidewire. The guidewire was removed. The cat heter was placed. Then, the introducer sheath was removed. Then, we tunneled this catheter undernea th the skin to meet the new incision in the left upper chest. We cut the catheter up to proper size. All that done with fluoroscopy. The catheter was connected to the Port-A-Cath using bass mechanism maker's specification. The Port-A-Cath was secured in place and sutured to the subcutaneous tissue. Then, after that, we saw excellent backflow and inflow and flushed with heparinized saline and closed the s ubcutaneous tissue with 3-0 chromic and skin in subcuticular fashion with 3-0 chromic and Steri-Strip s on top. The patient brought back to normal position. The patient tolerated the procedure well. T he patient sent to recovery in stable condition. She will be getting a stat chest x-ray once again t here. EUFEMIA/REGGIE Voice ID: [id number] Report ID: [id number]
[2020-08-21 11:29] VITALS: BP 127/69; TEMP 97.3; O2SAT 95
--- NOTE | 2020-08-21 11:30 | DS ---
Diagnosis: Ovarian cancer. Procedure: Placement of Port-A-Cath. Disposition: Home. Continue her previous medications starting this afternoon. That will include he r anticoagulation. Medications: Include Tylenol No.3 q.4 hours p.r.n. pain. Plan: She is going to notify the cancer center today about the Port-A-Cath placement, so she can res tart a chemotherapy tomorrow. Keep the area clean. Follow up in my office in 1 week. Call for appo intment at [phone]. /KASSIL Voice ID: [id number] Report ID: [id number]
--- NOTE | 2020-08-21 11:36 | RAD REPORT ---
EXAM DESCRIPTION: RAD - Chest Single View - 08/21/2020 11:30 am CLINICAL HISTORY: s/p port a cath insert Chest pain. COMPARISON: Chest Pa And Lat (2 Views) dated 08/21/2020; Chest Single View dated 06/26/2020; Chest Sin gle View dated 06/25/2020; Chest Single View dated 06/25/2020 FINDINGS: Portable technique limits examination quality. A left-sided venous catheter has its tip in the SVC. No pneumothorax is evident. IMPRESSION: No postprocedure pneumothorax.
--- NOTE | 2020-08-21 11:46 | RAD REPORT ---
EXAM DESCRIPTION: RAD - Fluoroscopy <1 Hour - 08/21/2020 11:38 am CLINICAL HISTORY: Venous catheter insertion. PORT A CATH COMPARISON: No comparisons FINDINGS: Fluoroscopic imaging is submitted from placement of a venous catheter. Details of the pro cedure not available. Fluoroscopy time: 0.4 minutes
== END 2020-08-21 12:30 | disposition home or self-care (01) ==
LOC: OR 07:20
PROVIDERS: ATTEND Surgery
PROC: 0JH60WZ Insertion of Totally Implantable Vascular Access Device into Chest Subcutaneous Tissue and Fascia, Open Approach (ICD-10-PCS; principal; 2020-08-21 08:00)
DX: C56.9 Malignant neoplasm of unspecified ovary (principal); Z20.822 Contact with and (suspected) exposure to COVID-19
CPT/HCPCS: 93005; 85025; 80048; 36415; 71045; 71046; 36561; U0003; J2704; J1644 ×3; J2250; J3010; J0690; J7120; J2405; 76000

== ENCOUNTER 2020-11-15 01:39 | Observation (INO) | payer OTHER ==
[2020-11-15 02:22] LABS: Protime INR 1.09
[2020-11-15 02:39] LABS: Absolute Lymphocytes (CBC) 2.1 K/uL (0.7-4.9); Hematocrit 29.6 % (36.0-45.0); Lymphocytes % 30.1 % (15.3-44.8); MPV 9.5 fL (7.6-11.3); RBC Red Blood Cell Count 2.84 M/uL (3.86-4.86)
[2020-11-15 02:41] LABS: ALT/SGPT 19 U/L (12-78); AST/SGOT 16 U/L (15-37); Albumin 3.3 g/dL (3.4-5.0); Alkaline Phosphatase 66 U/L (45-117); BUN Blood Urea Nitrogen 23 mg/dL (7-18); Bicarbonate 32 mmol/L (21-32); Bilirubin Direct < 0.1 mg/dL (0-0.2); Bilirubin Total 0.2 mg/dL (0.2-1.0); Glucose Level 116 mg/dL (74-106); NT PRO-BNP 297 pg/mL (<450); Protein, Total 8.2 g/dL (6.4-8.2); Sodium Level 141 mmol/L (136-145); Troponin (Emerg Dept Use Only) < 0.02 ng/mL (0.0-0.045)
[2020-11-15 02:42] LABS: Magnesium 1.8 mg/dL (1.8-2.4)
--- NOTE | 2020-11-15 04:06 | ER ---
Nurse's Notes [facility] Name: Minnie Astudillo Age: 80 yrs Sex: Female : 1940 Arrival Date: 11/15/2020 Time: 01:43 Bed 14 Private MD: Diagnosis: Chest pain, unspecified Presentation: 11/15 01:58 Chief complaint: Patient states: chest tightness that started tonight, was here about a em year ago and had to have emergency fluid removed right the right side, reports some shortness of breath, denies N/V or cough. Coronavirus screen: Client denies travel out of the [place] in the last 14 days. Ebola Screen: Patient negative for fever greater than or equal to 101.5 degrees Fahrenheit, and additional compatible Ebola Virus Disease symptoms Patient denies exposure to infectious person. Patient denies travel to an Ebola-affected area in the 21 days before illness onset. No symptoms or risks identified at this time. Initial Sepsis Screen: Does the patient meet any 2 criteria? No. Patient's initial sepsis screen is negative. Does the patient have a suspected source of infection? No. Patient's initial sepsis screen is negative. Risk Assessment: Do you want to hurt yourself or someone else? Patient reports no desire to harm self or others. Onset of symptoms was November 15, 2020. 01:58 Method Of Arrival: Ambulatory em 01:58 Acuity: ROD 3 em Historical: - Allergies: 02:01 No Known Allergies; em - Home Meds: 02:01 metoprolol tartrate 50 mg Oral tab 2 times per day [Active]; furosemide 40 mg Oral tab em 2 times per day [Active]; lisinopril-hydrochlorothiazide 20-25 mg Oral tab 1 tab once daily [Active]; potassium chloride 20 mEq Oral TbER once daily [Active]; ferrous sulfate 325 mg (65 mg iron) Oral tab twice a day [Active]; - PMHx: 02:01 CHF; Hypertension; em - PSHx: 02:01 colon resection; em - Immunization history:: Adult Immunizations up to date. - Social history:: Smoking status: Patient denies any tobacco usage or history of. Screenin:15 Abuse screen: Denies threats or abuse. Denies injuries from another. Nutritional wh screening: No deficits noted. Tuberculosis screening: No symptoms or risk factors identified. Fall Risk None identified. Assessment: 02:15 General: Appears in no apparent distress. Behavior is calm, cooperative, appropriate wh for age. Pain: Complains of pain in chest Pain does not radiate. Pain began suddenly. Pain: Quality of pain is described as pressure. Pain: Quality of pain is described as Pain began. Neuro: Level of Consciousness is awake, alert, obeys commands, Oriented to person, place, time, situation, Appropriate for age. Cardiovascular: Heart tones S1 S2 Rhythm is regular. Respiratory: Airway is patent Respiratory effort is even, unlabored, Respiratory pattern is regular, symmetrical, Breath sounds are clear bilaterally. GI: Abdomen is flat, non-distended. : No signs and/or symptoms were reported regarding the genitourinary system. EENT: No signs and/or symptoms were reported regarding the EENT system. Derm: Skin is intact, is healthy with good turgor, Skin is pink, warm \T\ dry. normal. Musculoskeletal: Circulation, motion, and sensation intact. 03:53 Reassessment: Patient appears in no apparent distress at this time. No changes from previously documented assessment. Patient and/or family updated on plan of care and expected duration. Pain level reassessed. Patient is alert, oriented x 3, equal unlabored respirations, skin warm/dry/pink. 05:56 Reassessment: Patient and/or family updated on plan of care and expected duration. Pain cr4 level reassessed. Patient is alert, oriented x 3, equal unlabored respirations, skin warm/dry/pink. was notified she was being admitted to 405.. 06:03 Reassessment: report called to Jaye CORDON for room 405. bb Vital Signs: 01:58 BP 162 / 77; Pulse 83; Resp 18; Temp 97.0; Pulse Ox 100% on R/A; Weight 88.45 kg; em Height 4 ft. 11 in. (149.86 cm); Pain 5/10; 04:00 BP 141 / 66; Pulse 68; Resp 18; Pulse Ox 98% on R/A; wh 01:58 Body Mass Index 39.38 (88.45 kg, 149.86 cm) em 01:58 [facility] (FACES) em ED Course: 01:43 Patient arrived in ED. bp1 01:49 Maverick Thomas MD is Attending Physician. 7 01:49 Jarrod Dumas, RN is Primary Nurse. 02:00 Triage completed. em 02:01 Arm band placed on. em 02:10 XRAY Chest (1 view) In Process Unspecified. EDMS 02:15 Patient has correct armband on for positive identification. Placed in gown. Bed in low wh position. Call light in reach. Side rails up X 1. school lunch monitor on. Pulse ox on. NIBP on. 02:15 Inserted saline lock: 20 gauge in right antecubital area, using aseptic technique. Blood collected. Patient maintains SpO2 saturation greater than 95% on room air. 04:05 Bj Pearl DO is Hospitalizing Provider. [facility] 05:48 Patient admitted, IV remains in place. bb 05:56 No provider procedures requiring assistance completed. cr4 Administered Medications: 04:33 Drug: Aspirin Chewable Tablet 162 mg Route: PO; Outcome: 04:05 Decision to Hospitalize by Provider. [facility] 05:48 Instructed on the need for admit. bb 06:02 Admitted to Tele accompanied by [facility], via stretcher, room 405, with chart, Report bb called to Jaye CORDON 06:02 Condition: stable 06:04 Patient left the ED. bb Signatures: Dispatcher [employer] Sha Cazares, RN NERIS Brea Stein RN RN bb Roya Johnson RN RN cr4 Jarrod Dumas, NERIS CORDON Yanet Kilgore bp1 Maverick Thomas MD MD [facility] Corrections: (The following items were deleted from the chart) 06:24 05:56 Reassessment: Patient and/or family updated on plan of care and expected cr4 duration. Pain level reassessed. Patient is alert, oriented x 3, equal unlabored respirations, skin warm/dry/pink. cr4
--- NOTE | 2020-11-15 04:06 | EDPHYS ---
Physician Documentation [facility] Name: Minnie Astudillo Age: 80 yrs Sex: Female : 1940 Arrival Date: 11/15/2020 Time: 01:43 Bed 14 Private MD: ED Physician Maverick Thomas HPI: 11/15 03:20 This 80 yrs old Black Female presents to ER via Ambulatory with complaints of Chest mh7 Tightness. 03:20 The patient or guardian reports chest pain that is located primarily in the substernal mh7 area. Onset: last night, at 23:00. The pain does not radiate. Associated signs and symptoms: Pertinent positives: cough, shortness of breath, Pertinent negatives: abdominal pain, diaphoresis, dizziness, headache, lower extremity pain, lower extremity swelling, lightheadedness, nausea, near syncope, palpitations, recent travel, syncope, vomiting. The chest pain is described as tightness. Duration: The patient or guardian reports multiple episodes, that are intermittent, that wax and wane. Modifying factors: The symptoms are alleviated by nothing. the symptoms are aggravated by nothing. Severity of pain: At its worst the pain was moderate last night, in the emergency department the pain has improved markedly. Historical: - Allergies: 02:01 No Known Allergies; em - Home Meds: 02:01 metoprolol tartrate 50 mg Oral tab 2 times per day [Active]; furosemide 40 mg Oral tab em 2 times per day [Active]; lisinopril-hydrochlorothiazide 20-25 mg Oral tab 1 tab once daily [Active]; potassium chloride 20 mEq Oral TbER once daily [Active]; ferrous sulfate 325 mg (65 mg iron) Oral tab twice a day [Active]; - PMHx: 02:01 CHF; Hypertension; em - PSHx: 02:01 colon resection; em - Immunization history:: Adult Immunizations up to date. - Social history:: Smoking status: Patient denies any tobacco usage or history of. ROS: 03:22 Constitutional: Negative for fever, chills, and weight loss, Eyes: Negative for injury, mh7 pain, redness, and discharge, ENT: Negative for injury, pain, and discharge, Neck: Negative for injury, pain, and swelling, Back: Negative for injury and pain, : Negative for injury, bleeding, discharge, and swelling, MS/Extremity: Negative for injury and deformity, Skin: Negative for injury, rash, and discoloration, Neuro: Negative for headache, weakness, numbness, tingling, and seizure, Psych: Negative for depression, anxiety, suicide ideation, homicidal ideation, and hallucinations, Allergy/Immunology: Negative for hives, rash, and allergies, Endocrine: Negative for neck swelling, polydipsia, polyuria, polyphagia, and marked weight changes, Hematologic/Lymphatic: Negative for swollen nodes, abnormal bleeding, and unusual bruising. 03:22 Abdomen/GI: Positive for nausea, Negative for abdominal pain, vomiting, diarrhea, constipation, abdominal cramps, abdominal distension, anorexia, dysphagia, hematemesis, black/tarry stool, rectal pain, rectal bleeding, bowel incontinence, flatulence. Exam: 03:22 Constitutional: This is a well developed, well nourished patient who is awake, alert, mh7 and in no acute distress. Head/Face: Normocephalic, atraumatic. Eyes: Pupils equal round and reactive to light, extra-ocular motions intact. Lids and lashes normal. Conjunctiva and sclera are non-icteric and not injected. Cornea within normal limits. Periorbital areas with no swelling, redness, or edema. Neck: Trachea midline, no thyromegaly or masses palpated, and no cervical lymphadenopathy. Supple, full range of motion without nuchal rigidity, or vertebral point tenderness. No Meningismus. Chest/axilla: Normal chest wall appearance and motion. Nontender with no deformity. No lesions are appreciated. Cardiovascular: Regular rate and rhythm with a normal S1 and S2. No gallops, murmurs, or rubs. Normal PMI, no JVD. No pulse deficits. Respiratory: Lungs have equal breath sounds bilaterally, clear to auscultation and percussion. No rales, rhonchi or wheezes noted. No increased work of breathing, no retractions or nasal flaring. Abdomen/GI: Soft, non-tender, with normal bowel sounds. No distension or tympany. No guarding or rebound. No evidence of tenderness throughout. Back: No spinal tenderness. No costovertebral tenderness. Full range of motion. Skin: Warm, dry with normal turgor. Normal color with no rashes, no lesions, and no evidence of cellulitis. MS/ Extremity: Pulses equal, no cyanosis. Neurovascular intact. Full, normal range of motion. Neuro: Awake and alert, GCS 15, oriented to person, place, time, and situation. Cranial nerves II-XII grossly intact. Motor strength 5/5 in all extremities. Sensory grossly intact. Cerebellar exam normal. Normal gait. Psych: Awake, alert, with orientation to person, place and time. Behavior, mood, and affect are within normal limits. Vital Signs: 01:58 BP 162 / 77; Pulse 83; Resp 18; Temp 97.0; Pulse Ox 100% on R/A; Weight 88.45 kg; em Height 4 ft. 11 in. (149.86 cm); Pain 5/10; 04:00 BP 141 / 66; Pulse 68; Resp 18; Pulse Ox 98% on R/A; wh 01:58 Body Mass Index 39.38 (88.45 kg, 149.86 cm) em 01:58 [facility] (FACES) em MDM: 04:03 Differential diagnosis: acute myocardial infarction, acute pericarditis, anxiety, [facility] coronary artery disease chest wall pain, congestive heart failure costochondritis, myocarditis, pericarditis, pneumonia, pneumothorax, pulmonary embolus. HEART Score: History: Moderately Suspicious (1), ECG: Normal (0), Age: > or = 65 years (2), Risk Factors: 1 or 2 risk factors (1), [Hypertension] Troponin: < or = 1 x Normal Limit (0), Total Score = 4. 04:04 Data reviewed: vital signs, nurses notes, old medical records, lab test result(s), [facility] cardiac enzymes, CBC, electrolytes, EKG, radiologic studies, CT scan, plain films. Data interpreted: Pulse oximetry: on room air is 100 %. Interpretation: normal. Counseling: I had a detailed discussion with the patient and/or guardian regarding: the historical points, exam findings, and any diagnostic results supporting the discharge/admit diagnosis, the presence of at least one elevated blood pressure reading (>120/80) during this emergency department visit, lab results, radiology results, the need for further work-up and treatment in the hospital. Response to treatment: the patient's symptoms have markedly improved after treatment. 04:05 Patient medically screened. [facility] 11/15 01:50 Order name: Basic Metabolic Panel 06/12 01:50 Order name: CBC with Diff; Complete Time: 02:46 11/15 01:50 Order name: LFT's; Complete Time: 02:46 11/15 01:50 Order name: Magnesium; Complete Time: 02:46 11/15 01:50 Order name: NT PRO-BNP; Complete Time: 02:46 11/15 01:50 Order name: PT-INR; Complete Time: 02:46 11/15 01:50 Order name: Troponin (emerg Dept Use Only); Complete Time: 02:46 11/15 01:50 Order name: XRAY Chest (1 view) 11/15 01:50 Order name: Basic Metabolic Panel; Complete Time: 02:46 [facility] 11/15 02:52 Order name: CT Chest For PE Angio [facility] 11/15 03:46 Order name: COVID-19 : Document "Date of Symptom Onset" if Symptomatic. 11/15 04:30 Order name: [facility] 11/15 05:26 Order name: SARS-COV-2 RT PCR [facility] 11/15 01:50 Order name: EKG; Complete Time: 01:51 11/15 01:50 Order name: Cardiac monitoring; Complete Time: 02:08 11/15 01:50 Order name: EKG - Nurse/Tech; Complete Time: 02:08 11/15 01:50 Order name: IV Saline Lock; Complete Time: 02:08 11/15 01:50 Order name: Labs collected and sent; Complete Time: 02:08 11/15 01:50 Order name: O2 Per Protocol; Complete Time: 02:08 11/15 01:50 Order name: O2 Sat Monitoring; Complete Time: 02:08 Administered Medications: 04:33 Drug: Aspirin Chewable Tablet 162 mg Route: PO; Disposition: 11/15/20 04:05 Hospitalization ordered by Bj Pearl for Observation. Preliminary diagnosis is Chest pain, unspecified. - Bed requested for Telemetry/MedSurg (observation). - Status is Observation. bb - Condition is Stable. - Problem is new. - Symptoms have improved. Signatures: Dispatcher [employer] [facility] Sha Shields RN RN em Ballard, Brenda, RN RN bb Garcia, Cindy, RN RN cg Habalo, Winsy, RN RN Maverick Thomas MD MD [facility] Corrections: (The following items were deleted from the chart) 03:24 03:20 Constitutional: Negative for fever, chills, and weight loss, Eyes: Negative for mh7 injury, pain, redness, and discharge, Neck: Negative for injury, pain, and swelling, Cardiovascular: Negative for chest pain, palpitations, and edema, Respiratory: Negative for shortness of breath, cough, wheezing, and pleuritic chest pain, Abdomen/GI: Negative for abdominal pain, nausea, vomiting, diarrhea, and constipation, Back: Negative for injury and pain, : Negative for injury, bleeding, discharge, and swelling, MS/Extremity: Negative for injury and deformity, Skin: Negative for injury, rash, and discoloration, Neuro: Negative for headache, weakness, numbness, tingling, and seizure, Psych: Negative for depression, anxiety, suicide ideation, homicidal ideation, and hallucinations, Allergy/Immunology: Negative for hives, rash, and allergies, Endocrine: Negative for neck swelling, polydipsia, polyuria, polyphagia, and marked weight changes, Hematologic/Lymphatic: Negative for swollen nodes, abnormal bleeding, and unusual bruising, [facility] 05:32 04:05 Hospitalization Ordered by Bj Pearl DO for Observation. Preliminary cg diagnosis is Chest pain, unspecified. Bed requested for Telemetry/MedSurg (observation). Status is Observation. Condition is Stable. Problem is new. Symptoms have improved. [facility] 06:04 05:32 11/15/2020 04:05 Hospitalization Ordered by Bj Pearl DO for Observation. bb Preliminary diagnosis is Chest pain, unspecified. Bed requested for Telemetry/MedSurg (observation). Status is Observation. Condition is Stable. Problem is new. Symptoms have improved. cg
--- NOTE | 2020-11-15 04:13 | P.HP ---
Certification for Inpatient Patient admitted to: Observation With expected LOS: <2 Midnights Patient will require the following post-hospital care: None Practitioner: I am a practitioner with admitting privileges, knowledge of patient current condition, hospital course, and medical plan of care. Services: Services provided to patient in accordance with Admission requirements found in Title 42 Section 412.3 of the Code of Federal Regulations Patient History Date of Service: 11/15/20 Primary Care Provider: Dr. Lupe Gallardo Reason for admission: Chest pain History of Present Illness: 80-year-old female with history of ovarian cancer on chemotherapy, chronic diastolic congestive heart failure, hypertension presents emergency department for chest pain. Patient reports that she is resting in her recliner this evening when she had a tightness across her chest with some associated dizziness. Patient reports the pain lasted approximately 30 min was nonradiating, not relieved by anything in particular. Patient reports previous stress test approximately 1 year prior was normal to her knowledge, patient has never had a heart catheterization previously. Initial labs in the emergency department significant for hemoglobin 9.5 hematocrit 9.6 MCV 104.2, patient with a chronic anemia. Initial troponin negative, EKG unremarkable, chest x-ray unremarkable. Patient pending CT PE protocol to rule out pulmonary embolism given cancer history. ED provider wishes to admit for chest pain rule out. Allergies No Known Allergies Allergy (Verified 08/21/20 07:44) Home Medications: Furosemide [Lasix] 40 mg PO BIDL 06/23/20 Metoprolol Tartrate [Lopressor*] 1 tab PO BID 06/23/20 Apixaban [Eliquis] 1 tab PO BID 08/21/20 Codeine/APAP [Tylenol W/Codeine #3 tab] 1 tab PO Q6HP PRN #10 tab 08/21/20 Multivit-Min/FA/Lycopen/Lutein [Centrum Silver Tablet] 1 tab PO DAILY 08/21/20 - Past Medical/Surgical History Diabetic: No -: Hypertension -: Chronic diastolic congestive heart failure -: colon resection Psychosocial/ Personal History: Patient is retired, lives alone - Family History Mother -: Hypertension - Social History Smoking Status: Never smoker Alcohol use: No CD- Drugs: No Place of Residence: Home Review of Systems 10-point ROS is otherwise unremarkable Cardiovascular: Chest Pain, As per HPI Physical Examination - Physical Exam General: Alert, In no apparent distress HEENT: Atraumatic, PERRLA, Mucous membr. moist/pink Neck: Supple, 2+ carotid pulse no bruit, No LAD Respiratory: Clear to auscultation bilaterally, Normal air movement Cardiovascular: Regular rate/rhythm, Normal S1 S2 Gastrointestinal: Normal bowel sounds, No tenderness Musculoskeletal: No tenderness Integumentary: No rashes Neurological: Normal speech, Normal strength at 5/5 x4 extr, Normal tone, Normal affect - Studies Laboratory Data (last 24 hrs) 11/15/20 01:58: PT 12.5, INR 1.09 11/15/20 01:58: WBC 7.10, Hgb 9.5 L, Hct 29.6 L, Plt Count 245 11/15/20 01:58: Sodium 141, Potassium 4.0, BUN 23 H, Creatinine 0.90, Glucose 116 H, Magnesium 1.8 D, Total Bilirubin 0.2, AST 16, ALT 19, Alkaline Phosphatase 66 Assessment and Plan - Plan Assessment Chest pain rule out ACS Macrocytic anemia Chronic diastolic congestive heart failure Ovarian cancer on chemotherapy Plan Chest pain rule out ACS: Trend troponins, monitor on telemetry, daily aspirin, beta-luis antonio, statin therapy. Cardiology consult in place. DVT prophylaxis Roddy enox 40 mg subcutaneous once daily. Appreciate further input from cardiology. Macrocytic anemia: Will obtain folic acid, B12 levels. Transfuse for hemoglobin less than 8. Chronic diastolic congestive heart failure: Continue Lasix 40 mg p.o. b.i.d., patient does not appear overload at this time. Ovarian cancer on chemotherapy: Last chemotherapy approximately 2 weeks prior, once every 3 weeks at [facility]. Stable. Discharge Plan: Home Plan to discharge in: 24 Hours - Advance Directives Does patient have a Living Will: No Does patient have a Durable POA for Healthcare: No - Code Status/Comfort Care Code Status Assessed: Yes (Full code) Critical Care: No Time Spent Managing Pts Care (In Minutes): 55
[2020-11-15] MEDS ORDERED: ASPIRIN 81 MG CHEWABLE TABLET ONE (04:53)
[2020-11-15] MEDS ORDERED: ONDANSETRON 4 MG/2 ML VIAL IV PRN (06:19)
[2020-11-15] MEDS ORDERED: ACETAMINOPHEN 500 MG TAB PO PRN (06:19)
--- NOTE | 2020-11-15 06:19 | P.DS ---
Admission Date: 11/15/20 Discharge Date: 11/15/20 Primary Care Provider: Meseret Barrera Cardiology-Dr. Andrade Disposition: ROUTINE DISCHARGE Reason for Admission: Chest pain Consultations: Cardiology-Dr. Majano Procedures: COVID: Negative CXR: COMPARISON: August 21 TECHNIQUE: AP portable chest image was obtained 11/15/2020 2:10 am . FINDINGS: Lung volumes are low. No peripheral mass or consolidation. No significant failure or volume overload findings seen. Left subclavian Port-A-Cath remains in place. Heart size is normal, decreased from the comparison. Central vasculature within normal limits. Mediastinum is distorted by patient rotation. No measurable pleural effusion and no pneumothorax. No acute bony abnormality seen. No acute aortic findings suspected. IMPRESSION: No acute cardiopulmonary process. CT scan: Medical Problem List: Chest pain atypical Anemia of chronic disease Hypertension Chronic diastolic congestive heart failure Ovarian cancer on chemotherapy History of lower extremity DVT no longer on anticoagulation therapy History of right loculated pleural effusion status post VATS Brief History of Present Illness: 80-year-old female with history of ovarian cancer on chemotherapy, anemia of chronic disease, chronic diastolic congestive heart failure, hypertension presents emergency department for chest pain. Patient reports that she is resting in her recliner this evening when she had a tightness across her chest with some associated dizziness. Patient reports the pain lasted approximately 30 min was nonradiating, not relieved by anything in particular. Patient reports previous cardiac stress test approximately 1 year prior was normal to her knowledge. Patient has not had a heart catheterization. Initial work-up unremarkable. Patient admitted for further evaluation and treatment. Patient reports history of lower extremity DVT previously on anticoagulation therapy. Hospital Course: Patient presented with chest pain. Patient admitted for observation. Cardiac enzymes unremarkable. Patient reports prior cardiac stress test in the past negative. Patient sees cardiology as an outpatient for hypertension and chronic diastolic CHF. Patient seen and evaluated by cardiology. No cardiac intervention required. Patient will be discharged home. Patient will need to continue with aspirin 81 mg daily, metoprolol 50 mg 1 pill twice daily, and Lasix 40 mg 1 pill twice daily. Patient with hypertension. This appears stable. At discharge patient will continue with metoprolol 50 mg 1 pill twice daily. Recommend to maintain blood pressure less than 130/80. Further adjustment can be done by her PCP or cardiology. Patient with chronic diastolic CHF. This appears stable. Chest x-ray unremarkable. CT scan reviewed. Patient was hospitalized in June of this year. Patient found to have loculated right pleural effusion. Patient required transfer to [place] for VATS. Patient has done well since that time. At discharge patient will continue with Lasix 40 mg 1 pill twice daily. Recommend to continue 1500 cc/day fluid restriction and low-salt diet. Recommend to monitor her weight daily. If her weight increases by more than 5 pounds further adjustment in her medication may be required. This can be done with the help of her PCP or forensic examiner. Patient with hyperlipidemia. LDL 131. Will recommend to initiate therapy due to her risk factors. At discharge patient will continue with Lipitor 10 mg at bedtime. Recommend to recheck fasting lipid panel in 4 to 6 weeks to monitor her progress. Further adjustment can be done by her PCP. Patient with anemia of chronic disease. Patient may continue with multivitamin daily. Patient with ovarian cancer on chemotherapy. Patient had chemotherapy 2 weeks ago. Patient will continue with oncology as directed. Patient with prior history of lower extremity DVT. Patient has completed treatment. Patient no longer on anticoagulation therapy. Vital Signs/Physical Exam: Temp Pulse Resp BP Pulse Ox 97.0 F 68 18 141/66 H 11/15/20 01:58 11/15/20 04:00 11/15/20 04:00 11/15/20 04:00 General: Alert, In no apparent distress, Oriented x3, Cooperative HEENT: Atraumatic Neck: Supple Respiratory: Clear to auscultation bilaterally, Normal air movement Cardiovascular: Normal pulses, Regular rate/rhythm Gastrointestinal: Normal bowel sounds, Soft and benign, Non-distended, No tenderness, No masses, No rebound, No guarding Musculoskeletal: No erythema, No tenderness, No warmth Integumentary: No tenderness/swelling Neurological: Normal speech, Normal strength at 5/5 x4 extr, Normal tone, Normal affect Laboratory Data at Discharge: WBC 7.10 K/uL (4.3-10.9) 11/15/20 01:58 Hgb 9.5 g/dL (12.0-15.0) L 11/15/20 01:58 Hct 29.6 % (36.0-45.0) L 11/15/20 01:58 Plt Count 245 K/uL (152-406) 11/15/20 01:58 PT 12.5 SECONDS (9.5-12.5) 11/15/20 01:58 INR 1.09 11/15/20 01:58 Sodium 141 mmol/L (136-145) 11/15/20 01:58 Potassium 4.0 mmol/L (3.5-5.1) 11/15/20 01:58 BUN 23 mg/dL (7-18) H 11/15/20 01:58 Creatinine 0.90 mg/dL (0.55-1.3) 11/15/20 01:58 Glucose 116 mg/dL (74-106) H 11/15/20 01:58 Magnesium 1.8 mg/dL (1.8-2.4) D 11/15/20 01:58 Total Bilirubin 0.2 mg/dL (0.2-1.0) 11/15/20 01:58 AST 16 U/L (15-37) 11/15/20 01:58 ALT 19 U/L (12-78) 11/15/20 01:58 Alkaline Phosphatase 66 U/L (45-117) 11/15/20 01:58 Home Medications: Furosemide [Lasix*] 40 mg PO BIDL 06/23/20 Metoprolol Tartrate [Lopressor*] 1 tab PO BID 06/23/20 Multivit-Min/FA/Lycopen/Lutein [Centrum Silver Tablet] 1 tab PO DAILY 08/21/20 Aspirin [Aspirin EC 81 MG] 81 mg PO DAILY #90 tablet. 11/15/20 Atorvastatin Calcium [Lipitor] 10 mg PO BEDTIME #30 tab 11/15/20 New Medications: Aspirin [Aspirin EC 81 MG] 81 mg PO DAILY #90 tablet. Atorvastatin Calcium [Lipitor] 10 mg PO BEDTIME #30 tab Physician Discharge Instructions: Patient presented with chest pain. Patient admitted for observation. Cardiac enzymes unremarkable. Patient reports prior cardiac stress test in the past negative. Patient sees cardiology as an outpatient for hypertension and chronic diastolic CHF. Patient seen and evaluated by cardiology. No cardiac intervention required. Patient will be discharged home. Patient will need to continue with aspirin 81 mg daily, metoprolol 50 mg 1 pill twice daily, and Lasix 40 mg 1 pill twice daily. Patient with hypertension. This appears stable. At discharge patient will continue with metoprolol 50 mg 1 pill twice daily. Recommend to maintain blood pressure less than 130/80. Further adjustment can be done by her PCP or cardiology. Patient with chronic diastolic CHF. This appears stable. Chest x-ray unremarkable. CT scan reviewed. Patient was hospitalized in June of this year. Patient found to have loculated right pleural effusion. Patient required transfer to [place] for VATS. Patient has done well since that time. At discharge patient will continue with Lasix 40 mg 1 pill twice daily. Recommend to continue 1500 cc/day fluid restriction and low-salt diet. Recommend to monitor her weight daily. If her weight increases by more than 5 pounds further adjustment in her medication may be required. This can be done with the help of her PCP or forensic examiner. Patient with hyperlipidemia. LDL 131. Will recommend to initiate therapy due to her risk factors. At discharge patient will continue with Lipitor 10 mg at bedtime. Recommend to recheck fasting lipid panel in 4 to 6 weeks to monitor her progress. Further adjustment can be done by her PCP. Patient with anemia of chronic disease. Patient may continue with multivitamin daily. Patient with ovarian cancer on chemotherapy. Patient had chemotherapy 2 weeks ago. Patient will continue with oncology as directed. Patient with prior history of lower extremity DVT. Patient has completed treatment. Patient no longer on anticoagulation therapy. Diet: AHA Activity: Ad jimy Followup: Meseret Barrera NP [Primary Care Provider] - Time spent managing pt's care (in minutes): 55
[2020-11-15 08:03] LABS: Folic Acid, (Folate) 14.1 ng/mL (3.1-17.5); HDL Cholesterol 72 mg/dL (40-60); LDL Cholesterol, Calculated 131 (<130); Troponin I < 0.02 ng/mL (0.0-0.045)
--- NOTE | 2020-11-15 08:30 | RAD REPORT ---
EXAM DESCRIPTION: RAD - Chest Single View - 11/15/2020 2:10 am CLINICAL HISTORY: CHEST PAIN COMPARISON: August 21 TECHNIQUE: AP portable chest image was obtained 11/15/2020 2:10 am . FINDINGS: Lung volumes are low. No peripheral mass or consolidation. No significant failure or volum e overload findings seen. Left subclavian Port-A-Cath remains in place. Heart size is normal, decreas ed from the comparison. Central vasculature within normal limits. Mediastinum is distorted by patient rotation. No measurable pleural effusion and no pneumothorax. No acute bony abnormality seen. No acu te aortic findings suspected. IMPRESSION: No acute cardiopulmonary process.
[2020-11-15] MEDS ORDERED: ENOXAPARIN 40 MG/0.4 ML SQ SCH (09:00)
[2020-11-15] MEDS ORDERED: FUROSEMIDE 40 MG TABLET PO SCH (09:00)
[2020-11-15] MEDS ORDERED: ASPIRIN EC 81 MG TAB PO SCH ×2 (09:00)
[2020-11-15] MEDS ORDERED: METOPROLOL TAR 50 MG TAB PO SCH (09:00)
[2020-11-15 10:01] LABS: Ferritin 550.2 ng/mL (8-388)
[2020-11-15 10:28] VITALS: BMI 39.4
[2020-11-15 12:03] VITALS: O2SAT 100
[2020-11-15 12:08] VITALS: BP 125/59; TEMP 97
--- NOTE | 2020-11-15 19:51 | CON ---
Date of Consultation: 11/15/2020 Reason For Consultation: Chest pain. History Of Present Illness: An 80-year-old female with history of ovarian cancer on chemotherapy, hi story of chronic diastolic heart failure, hypertension, presented with chest pain, felt like pressure , not related to exertion, lasted about 30 minutes and resolved. Denies having any exertional chest pain. There is no shortness of breath. She follows up with Dr. Andrade in the office and had a rece nt workup as per her report. Past Medical History: As outlined above. Medications: Refer to reconciliation sheet for detailed list. Allergies: NO KNOWN DRUG ALLERGIES. Family History: No mention of coronary artery disease or cancer. Social History: Does not smoke or drink. Does not use any drugs. Review of Systems: All systems reviewed and they were negative except what mentioned in HPI. Physical Examination: Vital Signs: Reviewed. Head and Neck: Pupils are equal, reactive to light. Intact eye movements. No JVD. No cervical lym phadenopathy. Neck: Supple. Thyroid is not enlarged. Lungs: Clear to auscultation bilaterally. No rhonchi, rales, or crackles. No accessory muscle use. Heart: Regular rate and rhythm. No extra sounds. Abdomen: Soft, nontender. Bowel sounds positive. No organomegaly. No masses or hernia. No rigidi ty or rebound. Extremities: No edema, clubbing, cyanosis. Intact pulses. Skin: No rash was noted. Neurologic: Alert, awake, oriented x3. No acute focal deficits appreciated. Investigations: Three sets of troponins are negative. Creatinine 0.9. Hemoglobin is 9.5. Assessment And Recommendations: Chest pain, atypical pain. Cardiac enzymes are negative and patient is pain-free. The patient can be released from the cardiac standpoint and follow up with her primar y housing assistant as an outpatient to determine the plan for further workup if deemed necessary. Thank you for the consult. /REGGIE Voice ID: [id number] Report ID: [id number]
[2020-11-15] MEDS ORDERED: ATORVASTATIN 40 MG TAB PO SCH (21:00)
--- NOTE | 2020-11-15 22:21 | RAD REPORT ---
EXAM DESCRIPTION: CT - Chest For Pe Angio - 11/15/2020 6:34 am CLINICAL HISTORY: 80 years Female CHEST PAIN COMPARISON: 06/26/2020. TECHNIQUE: Axial CT angiography of the chest was performed with multiplanar reformation and 3D and M IP reconstruction. This exam was performed according to our departmental dose-optimization program, w hich includes automated exposure control, adjustment of the mA and/or kV according to patient size an d/or use of iterative reconstruction technique. FINDINGS: Pulmonary arteries: No evidence of pulmonary embolism. Aorta: No evidence of aortic dissection or aneurysm. Mediastinum: Unremarkable. No adenopathy. Heart: No pericardial effusion. Coronary artery calcifications again noted. Lungs / airways: No consolidation. Airways are patent. Pleura: Tiny bilateral pleural effusions, significantly decreased from prior study. No pneumothorax. Osseous: Multilevel degenerative changes. Soft tissues: Unremarkable. Visualized upper abdomen: Small hiatal hernia. Ascites again noted, incompletely imaged. IMPRESSION: No acute intrathoracic abnormality. Electronically signed by: Everette Lopes MD 11/15/2020 3:54 AM CDT Due to temporary technical issues with the PACS/Fluency reporting system, reports are being signed by the in house radiologists without review as a courtesy to insure prompt reporting. The interpreting radiologist is fully responsible for the content of the report.
== END 2020-11-15 15:40 | disposition home or self-care (01) ==
LOC: ER 01:39 → ERHOLD 03:26 → 4TH 05:56
PROVIDERS: ADMIT Family Medicine; ATTEND Family Medicine
DX: R07.89 Other chest pain (principal); C56.9 Malignant neoplasm of unspecified ovary; D63.0 Anemia in neoplastic disease; I11.0 Hypertensive heart disease with heart failure; I50.32 Chronic diastolic (congestive) heart failure; Z86.718 Personal history of other venous thrombosis and embolism; Z20.822 Contact with and (suspected) exposure to COVID-19; E78.5 Hyperlipidemia, unspecified; Z92.21 Personal history of antineoplastic chemotherapy
CPT/HCPCS: 36415; 71045; 71275; 80048; 80061; 80076; 82607; 82728; 82746; 83540; 83735; 83880; 84439; 84443; 84466; 84484; 85025; 85610; 93005; 99285; G0378; J1650; Q9967; U0003